=== PATIENT | male | born 1965 | race African-American/Black ===

== ENCOUNTER 2017-05-31 22:39 | Inpatient (IN) | payer OTHER ==
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
[2017-06-01 00:55] VITALS: BMI 30.4
[2017-06-01] MEDS ORDERED: MENTHOL/PHENOL 1 EACH UD MM PRN (01:01)
[2017-06-01] MEDS ORDERED: chlordiazePOXIDE HCL 25 MG CAPSULE PO ONE (01:01)
[2017-06-01] MEDS ORDERED: diphenhydrAMINE HCL 50 MG CAPSULE PO PRN (01:01)
[2017-06-01] MEDS ORDERED: chlordiazePOXIDE HCL 25 MG CAPSULE PO PRN (01:01)
[2017-06-01] MEDS ORDERED: MAG HYDROX/AL HYDROX/SIMETH 30 ML UNIT-DOSE CUP PO PRN (01:01)
[2017-06-01] MEDS ORDERED: LOPERAMIDE HCL 2 MG CAPSULE PO PRN (01:01)
[2017-06-01] MEDS ORDERED: MAGNESIUM HYDROX 2400MG/30ML ORAL SUSPENSION 30 ML CUP PO PRN (01:01)
[2017-06-01] MEDS ORDERED: MAGNESIUM CITRATE 300 ML BOTTLE PO PRN (01:01)
[2017-06-01] MEDS ORDERED: hydrOXYzine PAMOATE 50 MG CAPSULE (FP) PO PRN (01:01)
[2017-06-01] MEDS ORDERED: ACETAMINOPHEN 325 MG TABLET (FP) PO PRN (01:01)
[2017-06-01] MEDS ORDERED: IBUPROFEN 400 MG TABLET (FP) PO PRN (01:01)
[2017-06-01] MEDS ORDERED: P-EPHED 60MG/TRIPROLIDI 2.5MG TABLET PO PRN (01:01)
[2017-06-01] MEDS ORDERED: guaiFENesin/D-METHORPHAN HB 10 ML UNIT-DOSE CUPS PO PRN (01:01)
[2017-06-01] MEDS: chlordiazePOXIDE HCL 25 MG CAPSULE PO SCH ×4 (06:11→22:13)
[2017-06-01] MEDS ORDERED: metFORMIN HCL 500 MG TABLET (FP) PO SCH (07:00)
[2017-06-01] MEDS: PRENATAL VITAMINS W/ FOLIC ACID TABLET (FP) PO SCH (10:04)
[2017-06-01] MEDS: NAPROXEN 500 MG TABLET (FP) PO SCH ×2 (10:04→22:13)
[2017-06-01] MEDS: HYDROCHLOROTHIAZIDE 25 MG TABLET (FP) PO SCH (10:05)
[2017-06-01 10:07] LABS: MCH 28.6 pg (25.7-33.7); MCHC 32.5 g/dl (32.0-35.9); MEAN PLT VOLUME 7.8 fl (7.5-11.1); PLATELET COUNT 240 K/MM3 (134-434); RDW 14.9 % (11.9-15.9); WHITE BLOOD COUNT 8.4 K/mm3 (4.0-10.0)
[2017-06-01 10:37] LABS: ALBUMIN 3.1 g/dl (3.4-5.0); ALK PHOS 73 U/L (45-117); ANION GAP 8 (8-16); BILIRUBIN,TOTAL 0.4 mg/dL (0.2-1.0); CALCIUM 8.7 mg/dL (8.5-10.1); CO2 28 mmol/L (21-32); GLUCOSE,RANDOM 130 mg/dL (74-106); SGOT/AST 18 U/L (15-37); SGPT/ALT 29 U/L (12-78); TOT PROT 6.1 g/dl (6.4-8.2)
--- NOTE | 2017-06-01 11:27 | EKG ---
Test Reason : Blood Pressure : / mmHG Vent. Rate : 055 BPM Atrial Rate : 055 BPM P-R Int : 168 ms QRS Dur : 080 ms QT Int : 424 ms P-R-T Axes : 075 -14 -09 degrees QTc Int : 405 ms SINUS BRADYCARDIA BIATRIAL ENLARGEMENT SEPTAL INFARCT , AGE UNDETERMINED ABNORMAL ECG NO PREVIOUS ECGS AVAILABLE Confirmed by ROBERT BARTON MD ([id number]) on 06/01/2017 11:26:55 AM Referred By: Confirmed By:ROBERT BARTON MD
[2017-06-01 11:29] LABS: HIV 1 & 2 AB NEGATIVE; HIV 1 AGp24 NEGATIVE
[2017-06-01] MEDS ORDERED: PNEUMOCOCCAL 23 VACCINE 0.5 ML VIAL IM ONE (12:00)
[2017-06-01] MEDS ORDERED: PNEUMOC 13-VAL CONJ-DIP CRM/PF 0.5 ML DISP.SYRIN IM ONE (12:00)
--- NOTE | 2017-06-01 12:01 | PN ---
[facility] CIWA - CIWA Score Nausea/Vomitin-Mild Nausea/No Vomiting Muscle Tremors: 4-Moderate,w/Arms Extend Anxiety: 4-Mod. Anxious/Guarded Agitation: 2 Paroxysmal Sweats: 3 Orientation: 0-Oriented Tacttile Disturbances: 2-Mild Itch/Numbness/Burn Auditory Disturbances: 2-Mild Harshness/Frighten Visual Disturbances: 0-None Headache: 0-None Present CIWA-Ar Total Score: 18 BHS Progress Note (SOAP) Subjective: Fatigue, Tremors. Objective: PT. A & O X 3. NO ACUTE DISTRESS. 06/01/17 11:59 Vital Signs Temperature 97 F L 06/01/17 09:34 Pulse Rate 65 06/01/17 09:34 Respiratory Rate 18 06/01/17 09:34 Blood Pressure 126/74 06/01/17 09:34 O2 Sat by Pulse Oximetry (%) Laboratory Tests 06/01/17 06/01/17 06/01/17 06:10 07:30 07:30 WBC 8.4 D RBC 4.71 Hgb 13.5 Hct 41.5 MCV 88.0 MCH 28.6 MCHC 32.5 RDW 14.9 Plt Count 240 MPV 7.8 Sodium Potassium Chloride Carbon Dioxide Anion Gap BUN Creatinine Creat Clearance w eGFR POC Glucometer 123 Random Glucose Calcium Total Bilirubin AST ALT Alkaline Phosphatase Total Protein Albumin HIV 1&2 Antibody Screen Negative HIV P24 Antigen Negative 06/01/17 07:30 WBC RBC Hgb Hct MCV MCH MCHC RDW Plt Count MPV Sodium 138 Potassium 3.9 Chloride 102 Carbon Dioxide 28 Anion Gap 8 BUN 18 Creatinine 1.0 D Creat Clearance w eGFR > 60 POC Glucometer Random Glucose 130 H Calcium 8.7 Total Bilirubin 0.4 D AST 18 ALT 29 Alkaline Phosphatase 73 D Total Protein 6.1 L Albumin 3.1 L HIV 1&2 Antibody Screen HIV P24 Antigen LABS NOTED. RPR RESULT PENDING. UA NOT YET COLLECTED. 06/01/17 12:01 Assessment: 06/01/17 12:00 WITHDRAWAL SYMPTOMS. Plan: CONTINUE DETOX.
[2017-06-01] MEDS: metFORMIN HCL 500 MG TABLET (FP) PO SCH (17:30)
[2017-06-01] MEDS: THIAMINE HCL 100 MG TABLET (FP) PO SCH (22:13)
[2017-06-01] MEDS: ATORVASTATIN CA 40 MG TABLET (FP) PO SCH (22:13)
[2017-06-01 23:01] LABS: URINE APPEARANCE CLEAR; URINE BILIRUBIN NEGATIVE (NEGATIVE); URINE BLOOD NEGATIVE (NEGATIVE); URINE COLOR STRAW; URINE GLUCOSE (UA) NEGATIVE (NEGATIVE); URINE KETONE NEGATIVE (NEGATIVE); URINE LEUK ESTERASE NEGATIVE (NEGATIVE); URINE NITRITE NEGATIVE (NEGATIVE); URINE PROTEIN NEGATIVE (NEGATIVE); URINE UROBILINOGEN NEGATIVE mg/dL (0.2-1.0)
[2017-06-02] MEDS: chlordiazePOXIDE HCL 25 MG CAPSULE PO SCH ×2 (05:36→10:29)
[2017-06-02] MEDS: PRENATAL VITAMINS W/ FOLIC ACID TABLET (FP) PO SCH (10:29)
[2017-06-02] MEDS: HYDROCHLOROTHIAZIDE 25 MG TABLET (FP) PO SCH (10:29)
[2017-06-02] MEDS: NAPROXEN 500 MG TABLET (FP) PO SCH ×2 (10:29→22:06)
--- NOTE | 2017-06-02 12:41 | PN ---
[facility] CIWA - CIWA Score Nausea/Vomitin-Mild Nausea/No Vomiting Muscle Tremors: 4-Moderate,w/Arms Extend Anxiety: 3 Agitation: 3 Paroxysmal Sweats: 2 Orientation: 0-Oriented Tacttile Disturbances: 0-None Auditory Disturbances: 0-None Visual Disturbances: 0-None Headache: 4-Moderately Severe CIWA-Ar Total Score: 17 S Progress Note (SOAP) Subjective: Tremors, H/A, Sweating. Objective: PT. A & O X 3, OBSERVED AMBULATING ON UNIT. NO ACUTE DISTRESS. 06/02/17 12:36 Vital Signs Temperature 98.1 F 06/02/17 09:54 Pulse Rate 72 06/02/17 09:54 Respiratory Rate 18 06/02/17 09:54 Blood Pressure 143/90 06/02/17 09:54 O2 Sat by Pulse Oximetry (%) Laboratory Tests 06/01/17 06/01/17 06/01/17 06:10 07:30 07:30 WBC 8.4 D RBC 4.71 Hgb 13.5 Hct 41.5 MCV 88.0 MCH 28.6 MCHC 32.5 RDW 14.9 Plt Count 240 MPV 7.8 Sodium Potassium Chloride Carbon Dioxide Anion Gap BUN Creatinine Creat Clearance w eGFR POC Glucometer 123 Random Glucose Calcium Total Bilirubin AST ALT Alkaline Phosphatase Total Protein Albumin Urine Color Urine Appearance Urine pH Ur Specific [place] Urine Protein Urine Glucose (UA) Urine Ketones Urine Blood Urine Nitrite Urine Bilirubin Urine Urobilinogen Ur Leukocyte Esterase RPR Titer HIV 1&2 Antibody Screen Negative HIV P24 Antigen Negative 06/01/17 06/01/17 06/01/17 07:30 07:30 16:25 WBC RBC Hgb Hct MCV MCH MCHC RDW Plt Count MPV Sodium 138 Potassium 3.9 Chloride 102 Carbon Dioxide 28 Anion Gap 8 BUN 18 Creatinine 1.0 D Creat Clearance w eGFR > 60 POC Glucometer 219 Random Glucose 130 H Calcium 8.7 Total Bilirubin 0.4 D AST 18 ALT 29 Alkaline Phosphatase 73 D Total Protein 6.1 L Albumin 3.1 L Urine Color Urine Appearance Urine pH Ur Specific [place] Urine Protein Urine Glucose (UA) Urine Ketones Urine Blood Urine Nitrite Urine Bilirubin Urine Urobilinogen Ur Leukocyte Esterase RPR Titer Nonreactive HIV 1&2 Antibody Screen HIV P24 Antigen 06/01/17 06/02/17 22:50 05:10 WBC RBC Hgb Hct MCV MCH MCHC RDW Plt Count MPV Sodium Potassium Chloride Carbon Dioxide Anion Gap BUN Creatinine Creat Clearance w eGFR POC Glucometer 183 Random Glucose Calcium Total Bilirubin AST ALT Alkaline Phosphatase Total Protein Albumin Urine Color Straw Urine Appearance Clear Urine pH 6.0 Ur Specific [place] 1.020 Urine Protein Negative Urine Glucose (UA) Negative Urine Ketones Negative Urine Blood Negative Urine Nitrite Negative Urine Bilirubin Negative Urine Urobilinogen Negative Ur Leukocyte Esterase Negative RPR Titer HIV 1&2 Antibody Screen HIV P24 Antigen LABS NOTED. Assessment: 06/02/17 12:37 WITHDRAWAL SYMPTOMS. Plan: CONTINUE DETOX. PATIENT REPORTS THAT CURRENT DOSAGES OF LIBRIUM DETOX REGIMEN ARE CAUSING HIM TO FEEL SIGNIFICANTLY LETHARGIC. DOSING SCHEDULE OF LIBRIUM DETOX REGIMEN MODIFIED TO HELP REDUCE THIS OCCURRENCE.
[2017-06-02] MEDS ORDERED: chlordiazePOXIDE HCL 25 MG CAPSULE PO SCH (17:00)
[2017-06-02] MEDS: metFORMIN HCL 500 MG TABLET (FP) PO SCH (17:30)
[2017-06-02] MEDS ORDERED: chlordiazePOXIDE 5 MG CAPSULE PO SCH (22:00)
[2017-06-02] MEDS: chlordiazePOXIDE 5 MG CAPSULE PO SCH (22:06)
[2017-06-02] MEDS: THIAMINE HCL 100 MG TABLET (FP) PO SCH (22:06)
[2017-06-02] MEDS: ATORVASTATIN CA 40 MG TABLET (FP) PO SCH (22:06)
[2017-06-03] MEDS ORDERED: chlordiazePOXIDE 5 MG CAPSULE PO SCH (05:00)
[2017-06-03] MEDS: chlordiazePOXIDE 5 MG CAPSULE PO SCH ×2 (06:02→10:25)
[2017-06-03] MEDS: PRENATAL VITAMINS W/ FOLIC ACID TABLET (FP) PO SCH (10:25)
[2017-06-03] MEDS: NAPROXEN 500 MG TABLET (FP) PO SCH (10:25)
[2017-06-03] MEDS: HYDROCHLOROTHIAZIDE 25 MG TABLET (FP) PO SCH (10:25)
[2017-06-03] MEDS ORDERED: chlordiazePOXIDE HCL 10 MG CAPSULE PO SCH (17:00)
[2017-06-03 19:38] VITALS: BP 143/84; PULSE 83; TEMP 97.7
[2017-06-04] MEDS ORDERED: chlordiazePOXIDE HCL 10 MG CAPSULE PO SCH (05:00)
== END 2017-06-03 12:50 | disposition left against medical advice (07) | DRG 770 ==
LOC: YASAS 22:39 → Y3N 06-01 00:59
PROVIDERS: ADMIT Internal Medicine; ATTEND Internal Medicine
PROC: HZ2ZZZZ Detoxification Services for Substance Abuse Treatment (ICD-10-PCS; principal; 2017-06-01)
DX: F10.230 Alcohol dependence with withdrawal, uncomplicated (principal); F14.20 Cocaine dependence, uncomplicated; F12.20 Cannabis dependence, uncomplicated; F17.210 Nicotine dependence, cigarettes, uncomplicated; E11.9 Type 2 diabetes mellitus without complications; E78.00 Pure hypercholesterolemia, unspecified; E66.01 Morbid (severe) obesity due to excess calories; Z68.30 Body mass index [BMI] 30.0-30.9, adult; M54.5 Low back pain; Z87.828 Personal history of other (healed) physical injury and trauma; Z79.84 Long term (current) use of oral hypoglycemic drugs
CPT/HCPCS: 36415; 80053; 81003; 85027; 86593; 87389; 90732; 93005; 93010; G0009

== ENCOUNTER 2017-12-15 10:00 | Inpatient (IN) | payer OTHER ==
[2017-12-15 11:06] VITALS: BMI 35.6
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
[2017-12-15] MEDS ORDERED: MAG HYDROX/AL HYDROX/SIMETH 30 ML UNIT-DOSE CUP PO PRN (11:35)
[2017-12-15] MEDS ORDERED: P-EPHED 60MG/TRIPROLIDI 2.5MG TABLET PO PRN (11:35)
[2017-12-15] MEDS ORDERED: guaiFENesin/D-METHORPHAN HB 10 ML UNIT-DOSE CUPS PO PRN (11:35)
[2017-12-15] MEDS ORDERED: MAGNESIUM HYDROX 2400MG/30ML ORAL SUSPENSION 30 ML CUP PO PRN (11:35)
[2017-12-15] MEDS ORDERED: MAGNESIUM CITRATE 300 ML BOTTLE PO PRN (11:35)
[2017-12-15] MEDS ORDERED: NICOTINE POLACRILEX 2 MG GUM BC PRN (11:35)
[2017-12-15] MEDS ORDERED: MENTHOL/PHENOL 1 EACH UD MM PRN (11:35)
[2017-12-15] MEDS ORDERED: LOPERAMIDE HCL 2 MG CAPSULE PO PRN (11:35)
[2017-12-15] MEDS ORDERED: hydrOXYzine PAMOATE 25 MG CAPSULE (FP) PO PRN (11:35)
[2017-12-15] MEDS ORDERED: ACETAMINOPHEN 325 MG TABLET (FP) PO PRN (11:35)
[2017-12-15] MEDS ORDERED: IBUPROFEN 400 MG TABLET (FP) PO PRN (11:35)
[2017-12-15] MEDS ORDERED: chlordiazePOXIDE HCL 25 MG CAPSULE PO PRN (11:35)
[2017-12-15] MEDS ORDERED: chlordiazePOXIDE HCL 25 MG CAPSULE PO ONE (13:30)
[2017-12-15] MEDS: NICOTINE 14 MG/24 HOURS TOPICAL PATCH TD SCH (13:45)
[2017-12-15 16:53] LABS: URINE APPEARANCE TURBID; URINE BILIRUBIN NEGATIVE (NEGATIVE); URINE BLOOD NEGATIVE (NEGATIVE); URINE COLOR YELLOW; URINE GLUCOSE (UA) NEGATIVE (NEGATIVE); URINE KETONE TRACE (NEGATIVE); URINE LEUK ESTERASE NEGATIVE (NEGATIVE); URINE NITRITE NEGATIVE (NEGATIVE); URINE PROTEIN NEGATIVE (NEGATIVE); URINE UROBILINOGEN 4.0 E.U/dl mg/dL (0.2-1.0)
[2017-12-15] MEDS: chlordiazePOXIDE HCL 25 MG CAPSULE PO SCH ×2 (17:46→22:05)
[2017-12-15] MEDS ORDERED: THIAMINE HCL 100 MG TABLET (FP) PO SCH (22:00)
[2017-12-15] MEDS: NAPROXEN 500 MG TABLET (FP) PO SCH (22:05)
[2017-12-16] MEDS: chlordiazePOXIDE HCL 25 MG CAPSULE PO SCH ×3 (05:12→10:06)
[2017-12-16] MEDS ORDERED: metFORMIN HCL 500 MG TABLET (FP) PO SCH ×2 (07:00→10:00)
[2017-12-16] MEDS ORDERED: PRENATAL VITAMINS W/ FOLIC ACID TABLET (FP) PO SCH (10:00)
[2017-12-16] MEDS ORDERED: HYDROCHLOROTHIAZIDE 12.5 MG CAPSULE (FP) PO SCH (10:00)
[2017-12-16] MEDS ORDERED: ASPIRIN 81 MG CHEWABLE TABLETS PO SCH (10:00)
[2017-12-16] MEDS: NAPROXEN 500 MG TABLET (FP) PO SCH (10:06)
[2017-12-16] MEDS: NICOTINE 14 MG/24 HOURS TOPICAL PATCH TD SCH (10:47)
--- NOTE | 2017-12-16 12:21 | EKG ---
Test Reason : Blood Pressure : / mmHG Vent. Rate : 076 BPM Atrial Rate : 076 BPM P-R Int : 180 ms QRS Dur : 080 ms QT Int : 392 ms P-R-T Axes : 070 -27 034 degrees QTc Int : 441 ms NORMAL SINUS RHYTHM NONSPECIFIC T WAVE ABNORMALITY ABNORMAL ECG WHEN COMPARED WITH ECG OF 01-JUN-2017 01:02, CRITERIA FOR SEPTAL INFARCT ARE NO LONGER PRESENT NONSPECIFIC T WAVE ABNORMALITY NO LONGER EVIDENT IN INFERIOR LEADS Confirmed by ROBERT BARTON MD ([id number]) on 12/16/2017 12:20:50 PM Referred By: Confirmed By:ROBERT BARTON MD
[2017-12-16 12:35] LABS: HEMATOCRIT 40.2 % (35.4-49); MCH 28.4 pg (25.7-33.7); MCHC 32.4 g/dl (32.0-35.9); MEAN CELL VOLUME 87.8 fl (80-96); MEAN PLT VOLUME 7.7 fl (7.5-11.1); PLATELET COUNT 301 K/MM3 (134-434); RBC 4.57 M/mm3 (4.00-5.60)
[2017-12-16 12:49] LABS: CHLORIDE 106 mmol/L (98-107); SODIUM 139 mmol/L (136-145)
[2017-12-16 12:56] LABS: ALBUMIN 3.4 g/dl (3.4-5.0); ALK PHOS 64 U/L (45-117); ANION GAP 8 (8-16); BILIRUBIN,TOTAL 0.5 mg/dL (0.2-1.0); BLOOD UREA NITROGEN 21 mg/dL (7-18); CALCIUM 9.1 mg/dL (8.5-10.1); CO2 25 mmol/L (21-32); CREATININE 1.2 mg/dL (0.7-1.3); GLUCOSE,RANDOM 143 mg/dL (74-106); SGOT/AST 19 U/L (15-37); SGPT/ALT 30 U/L (12-78); TOT PROT 6.8 g/dl (6.4-8.2)
[2017-12-16 14:03] VITALS: BP 135/88; PULSE 73; TEMP 98.1
--- NOTE | 2017-12-16 14:22 | PN ---
[facility] CIWA - CIWA Score Nausea/Vomitin-No Nausea/No Vomiting Muscle Tremors: 3 Anxiety: 4-Mod. Anxious/Guarded Agitation: 2 Paroxysmal Sweats: 3 Orientation: 0-Oriented Tacttile Disturbances: 2-Mild Itch/Numbness/Burn Auditory Disturbances: 2-Mild Harshness/Frighten Visual Disturbances: 0-None Headache: 0-None Present CIWA-Ar Total Score: 16 S Progress Note (SOAP) Subjective: Fatigue, Interrupted Sleep, Sweating, Tremors. Objective: PT. A & O X 3, OBSERVED AMBULATING ON UNIT. NO ACUTE DISTRESS. 12/16/17 14:20 Vital Signs Temperature 98.1 F 12/16/17 14:02 Pulse Rate 73 12/16/17 14:02 Respiratory Rate 20 12/16/17 14:02 Blood Pressure 135/88 12/16/17 14:02 O2 Sat by Pulse Oximetry (%) Laboratory Tests 12/15/17 12/15/17 12/15/17 11:19 12:15 15:00 WBC RBC Hgb Hct MCV MCH MCHC RDW Plt Count MPV Sodium Potassium Chloride Carbon Dioxide Anion Gap BUN Creatinine Creat Clearance w eGFR POC Glucometer 163 Random Glucose Calcium Total Bilirubin AST ALT Alkaline Phosphatase Total Protein Albumin Urine Color Yellow Urine Appearance Turbid Urine pH 5.0 Ur Specific [place] 1.030 Urine Protein Negative Urine Glucose (UA) Negative Urine Ketones Trace H Urine Blood Negative Urine Nitrite Negative Urine Bilirubin Negative Urine Urobilinogen 4.0 e.u/dl Ur Leukocyte Esterase Negative RPR Titer HIV 1&2 Antibody Screen Negative HIV P24 Antigen Negative 12/16/17 12/16/17 12/16/17 06:00 06:00 06:00 WBC 9.0 RBC 4.57 Hgb 13.0 Hct 40.2 MCV 87.8 MCH 28.4 MCHC 32.4 RDW 15.0 Plt Count 301 D MPV 7.7 Sodium 139 Potassium 4.0 Chloride 106 Carbon Dioxide 25 Anion Gap 8 BUN 21 H Creatinine 1.2 Creat Clearance w eGFR > 60 POC Glucometer Random Glucose 143 H Calcium 9.1 Total Bilirubin 0.5 D AST 19 ALT 30 Alkaline Phosphatase 64 Total Protein 6.8 Albumin 3.4 Urine Color Urine Appearance Urine pH Ur Specific [place] Urine Protein Urine Glucose (UA) Urine Ketones Urine Blood Urine Nitrite Urine Bilirubin Urine Urobilinogen Ur Leukocyte Esterase RPR Titer Nonreactive HIV 1&2 Antibody Screen HIV P24 Antigen LABS NOTED. Assessment: 12/16/17 14:21 WITHDRAWAL SYMPTOMS. Plan: CONTINUE DETOX. INCREASE DAILY PO FLUID INTAKE.
[2017-12-16] MEDS ORDERED: chlordiazePOXIDE HCL 25 MG CAPSULE PO SCH (17:00)
--- NOTE | 2017-12-16 17:50 | PN ---
BHS Progress Note Note: did not want to complete treatment ,seen by counselor,did not want to wait, sigened release ama
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
[2017-12-17] MEDS ORDERED: chlordiazePOXIDE 5 MG CAPSULE PO SCH (17:00)
[2017-12-18] MEDS ORDERED: chlordiazePOXIDE HCL 10 MG CAPSULE PO SCH (17:00)
== END 2017-12-16 05:54 | disposition left against medical advice (07) | DRG 770 ==
LOC: YASAS 10:00 → Y3N 12:39
PROVIDERS: ADMIT Internal Medicine; ATTEND Internal Medicine
PROC: HZ2ZZZZ Detoxification Services for Substance Abuse Treatment (ICD-10-PCS; principal; 2017-12-15)
DX: F10.230 Alcohol dependence with withdrawal, uncomplicated (principal); F14.20 Cocaine dependence, uncomplicated; F12.20 Cannabis dependence, uncomplicated; F17.210 Nicotine dependence, cigarettes, uncomplicated; I10 Essential (primary) hypertension; E78.00 Pure hypercholesterolemia, unspecified; E11.9 Type 2 diabetes mellitus without complications; M54.5 Low back pain; E66.01 Morbid (severe) obesity due to excess calories; Z68.35 Body mass index [BMI] 35.0-35.9, adult; Z91.14 Patient's other noncompliance with medication regimen; Z79.84 Long term (current) use of oral hypoglycemic drugs
CPT/HCPCS: 36415; 80053; 81003; 82962; 85027; 86593; 87389; 93005; 93010

== ENCOUNTER 2018-01-24 14:07 | Inpatient (IN) | payer OTHER ==
[2018-01-24 16:51] VITALS: BMI 36.5
--- NOTE | 2018-01-24 18:35 | HP ---
[facility] Rehab Assess/Revision - Admission History Admitted to Rehab from: [facility] Date of Admission to Rehab: 01/24/2018 - Vital signs Vital Signs: Vital Signs Period Temp Pulse Resp BP Sys/Victoria Pulse Ox Last 24 Hr 98.9 F 97 18 170/100 - Findings Detox History & Physical reviewed: Yes Concur with findings: Yes Comments/Additional Findings: patient was d/c from [facility] and detoxed now in need of rehab, no withdrawal sx noted, hypertensive on medication which he has beent akign Inpatient Rehab Admission - Initial Determination Are CD services needed?: Yes Free of communicable disease: Yes Not in need of hospitalization: Yes - Rehab Admission Criteria Lacks judgement: Yes Patient is meeting Inpatient Rehab admission criteria:: Yes (patient did not complete detox last admissions )
[2018-01-24] MEDS ORDERED: LOPERAMIDE HCL 2 MG CAPSULE PO PRN (18:36)
[2018-01-24] MEDS ORDERED: hydrOXYzine PAMOATE 50 MG CAPSULE (FP) PO PRN (18:36)
[2018-01-24] MEDS ORDERED: MAGNESIUM CITRATE 300 ML BOTTLE PO PRN (18:36)
[2018-01-24] MEDS ORDERED: MENTHOL/PHENOL 1 EACH UD MM PRN (18:36)
[2018-01-24] MEDS ORDERED: P-EPHED 60MG/TRIPROLIDI 2.5MG TABLET PO PRN (18:36)
[2018-01-24] MEDS ORDERED: guaiFENesin/D-METHORPHAN HB 10 ML UNIT-DOSE CUPS PO PRN (18:36)
[2018-01-24] MEDS ORDERED: ACETAMINOPHEN 325 MG TABLET (FP) PO PRN (18:36)
[2018-01-24] MEDS ORDERED: MAG HYDROX/AL HYDROX/SIMETH 30 ML UNIT-DOSE CUP PO PRN (18:36)
[2018-01-24] MEDS: HYDROCHLOROTHIAZIDE 12.5 MG CAPSULE (FP) PO SCH (19:45)
[2018-01-24] MEDS ORDERED: NAPROXEN 500 MG TABLET (FP) PO PRN (20:06)
[2018-01-24] MEDS ORDERED: TUBERCULIN PPD 5 TU/0.1ML VIAL ID ONE (20:50)
[2018-01-24] MEDS: GABAPENTIN 300 MG CAPSULE (FP) PO SCH (21:43)
[2018-01-24] MEDS: NAPROXEN 500 MG TABLET (FP) PO SCH (21:43)
[2018-01-24] MEDS: ATORVASTATIN CA 20 MG TABLET (FP) PO SCH (21:43)
[2018-01-24] MEDS: THIAMINE HCL 100 MG TABLET (FP) PO SCH (21:44)
[2018-01-24] MEDS ORDERED: MELATONIN 5 MG TABLETS PO PRN (22:00)
[2018-01-24] MEDS ORDERED: PATIENT'S OWN MEDICATION (NON-FORMULARY) (Simvastatin [Simvastatin] 20 MG) PO SCH (22:00)
[2018-01-25] MEDS: metFORMIN HCL 500 MG TABLET (FP) PO SCH ×2 (06:20→17:12)
[2018-01-25] MEDS: ASPIRIN 81 MG CHEWABLE TABLETS PO SCH (09:57)
[2018-01-25] MEDS: GABAPENTIN 300 MG CAPSULE (FP) PO SCH ×2 (09:58→22:10)
[2018-01-25] MEDS: LORATADINE 10 MG TABLET PO SCH (09:58)
[2018-01-25] MEDS: PANTOPRAZOLE 40 MG TABLET (FP) PO SCH (09:58)
[2018-01-25] MEDS: ENALAPRIL MALEATE 10 MG TABLET (FP) PO SCH (09:58)
[2018-01-25] MEDS: NICOTINE 14 MG/24 HOURS TOPICAL PATCH TD SCH (09:58)
[2018-01-25] MEDS: NAPROXEN 500 MG TABLET (FP) PO SCH ×2 (09:58→22:10)
[2018-01-25] MEDS: HYDROCHLOROTHIAZIDE 12.5 MG CAPSULE (FP) PO SCH (09:58)
[2018-01-25] MEDS: PRENATAL VITAMINS W/ FOLIC ACID TABLET (FP) PO SCH (09:58)
[2018-01-25] MEDS: MINERAL OIL/PETROLAT/WATER TOPICAL CREAM 113 GM JAR TP SCH (10:02)
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
--- NOTE | 2018-01-25 11:44 | EKG ---
Test Reason : Blood Pressure : / mmHG Vent. Rate : 066 BPM Atrial Rate : 066 BPM P-R Int : 194 ms QRS Dur : 086 ms QT Int : 400 ms P-R-T Axes : 071 -10 -10 degrees QTc Int : 419 ms NORMAL SINUS RHYTHM SEPTAL INFARCT , AGE UNDETERMINED ABNORMAL ECG WHEN COMPARED WITH ECG OF 15-DEC-2017 14:25, SEPTAL INFARCT IS NOW PRESENT NONSPECIFIC T WAVE ABNORMALITY NOW EVIDENT IN INFERIOR LEADS Confirmed by ROBERT BARTON MD ([id number]) on 01/25/2018 11:44:26 AM Referred By: Confirmed By:ROBERT BARTON MD
[2018-01-25] MEDS: THIAMINE HCL 100 MG TABLET (FP) PO SCH (22:10)
[2018-01-25] MEDS: ATORVASTATIN CA 20 MG TABLET (FP) PO SCH (22:10)
[2018-01-26] MEDS: metFORMIN HCL 500 MG TABLET (FP) PO SCH ×2 (06:26→17:04)
[2018-01-26] MEDS: GABAPENTIN 300 MG CAPSULE (FP) PO SCH ×2 (10:39→21:38)
[2018-01-26] MEDS: NAPROXEN 500 MG TABLET (FP) PO SCH ×2 (10:39→21:38)
[2018-01-26] MEDS: ASPIRIN 81 MG CHEWABLE TABLETS PO SCH (10:39)
[2018-01-26] MEDS: NICOTINE POLACRILEX 2 MG GUM BUC PRN ×2 (10:39→21:39)
[2018-01-26] MEDS: PANTOPRAZOLE 40 MG TABLET (FP) PO SCH (10:39)
[2018-01-26] MEDS: LORATADINE 10 MG TABLET PO SCH (10:39)
[2018-01-26] MEDS: ENALAPRIL MALEATE 10 MG TABLET (FP) PO SCH (10:39)
[2018-01-26] MEDS: PRENATAL VITAMINS W/ FOLIC ACID TABLET (FP) PO SCH (10:39)
[2018-01-26] MEDS: HYDROCHLOROTHIAZIDE 12.5 MG CAPSULE (FP) PO SCH (10:39)
[2018-01-26] MEDS: NICOTINE 14 MG/24 HOURS TOPICAL PATCH TD SCH (10:39)
[2018-01-26] MEDS: MAGNESIUM HYDROX 2400MG/30ML ORAL SUSPENSION 30 ML CUP PO PRN (10:42)
[2018-01-26] MEDS: MINERAL OIL/PETROLAT/WATER TOPICAL CREAM 113 GM JAR TP SCH (11:00)
[2018-01-26] MEDS: THIAMINE HCL 100 MG TABLET (FP) PO SCH (21:38)
[2018-01-26] MEDS: ATORVASTATIN CA 20 MG TABLET (FP) PO SCH (21:38)
[2018-01-27] MEDS: NICOTINE POLACRILEX 2 MG GUM BUC PRN ×3 (06:38→22:10)
[2018-01-27] MEDS: metFORMIN HCL 500 MG TABLET (FP) PO SCH ×2 (06:38→17:30)
[2018-01-27] MEDS: MAGNESIUM HYDROX 2400MG/30ML ORAL SUSPENSION 30 ML CUP PO PRN (06:40)
[2018-01-27] MEDS: MINERAL OIL/PETROLAT/WATER TOPICAL CREAM 113 GM JAR TP SCH (10:15)
[2018-01-27] MEDS: HYDROCHLOROTHIAZIDE 12.5 MG CAPSULE (FP) PO SCH (10:53)
[2018-01-27] MEDS: PRENATAL VITAMINS W/ FOLIC ACID TABLET (FP) PO SCH (10:53)
[2018-01-27] MEDS: LORATADINE 10 MG TABLET PO SCH (10:53)
[2018-01-27] MEDS: ENALAPRIL MALEATE 10 MG TABLET (FP) PO SCH (10:53)
[2018-01-27] MEDS: PANTOPRAZOLE 40 MG TABLET (FP) PO SCH (10:53)
[2018-01-27] MEDS: GABAPENTIN 300 MG CAPSULE (FP) PO SCH ×2 (10:53→22:10)
[2018-01-27] MEDS: ASPIRIN 81 MG CHEWABLE TABLETS PO SCH (10:53)
[2018-01-27] MEDS: NICOTINE 14 MG/24 HOURS TOPICAL PATCH TD SCH (10:55)
[2018-01-27] MEDS: NAPROXEN 500 MG TABLET (FP) PO SCH ×2 (10:57→22:10)
[2018-01-27] MEDS: ATORVASTATIN CA 20 MG TABLET (FP) PO SCH (22:10)
[2018-01-27] MEDS: THIAMINE HCL 100 MG TABLET (FP) PO SCH (22:10)
[2018-01-28] MEDS: metFORMIN HCL 500 MG TABLET (FP) PO SCH ×2 (06:50→17:10)
[2018-01-28] MEDS: NICOTINE POLACRILEX 2 MG GUM BUC PRN ×2 (06:51→11:00)
[2018-01-28] MEDS: LORATADINE 10 MG TABLET PO SCH (11:00)
[2018-01-28] MEDS: NAPROXEN 500 MG TABLET (FP) PO SCH ×2 (11:00→21:34)
[2018-01-28] MEDS: ASPIRIN 81 MG CHEWABLE TABLETS PO SCH (11:00)
[2018-01-28] MEDS: PRENATAL VITAMINS W/ FOLIC ACID TABLET (FP) PO SCH (11:00)
[2018-01-28] MEDS: HYDROCHLOROTHIAZIDE 12.5 MG CAPSULE (FP) PO SCH (11:00)
[2018-01-28] MEDS: ENALAPRIL MALEATE 10 MG TABLET (FP) PO SCH (11:00)
[2018-01-28] MEDS: MINERAL OIL/PETROLAT/WATER TOPICAL CREAM 113 GM JAR TP SCH (11:00)
[2018-01-28] MEDS: PANTOPRAZOLE 40 MG TABLET (FP) PO SCH (11:00)
[2018-01-28] MEDS: GABAPENTIN 300 MG CAPSULE (FP) PO SCH ×2 (11:00→21:34)
[2018-01-28] MEDS: NICOTINE 14 MG/24 HOURS TOPICAL PATCH TD SCH (11:08)
[2018-01-28] MEDS: ATORVASTATIN CA 20 MG TABLET (FP) PO SCH (21:34)
[2018-01-28] MEDS: THIAMINE HCL 100 MG TABLET (FP) PO SCH (21:34)
[2018-01-29] MEDS: metFORMIN HCL 500 MG TABLET (FP) PO SCH ×2 (06:59→16:49)
[2018-01-29] MEDS: NICOTINE POLACRILEX 2 MG GUM BUC PRN ×2 (07:00→10:02)
[2018-01-29] MEDS: HYDROCHLOROTHIAZIDE 12.5 MG CAPSULE (FP) PO SCH (09:59)
[2018-01-29] MEDS: ENALAPRIL MALEATE 10 MG TABLET (FP) PO SCH (09:59)
[2018-01-29] MEDS: PRENATAL VITAMINS W/ FOLIC ACID TABLET (FP) PO SCH (10:00)
[2018-01-29] MEDS: NAPROXEN 500 MG TABLET (FP) PO SCH ×2 (10:00→22:06)
[2018-01-29] MEDS: MINERAL OIL/PETROLAT/WATER TOPICAL CREAM 113 GM JAR TP SCH (10:00)
[2018-01-29] MEDS: NICOTINE 14 MG/24 HOURS TOPICAL PATCH TD SCH (10:00)
[2018-01-29] MEDS: LORATADINE 10 MG TABLET PO SCH (10:00)
[2018-01-29] MEDS: GABAPENTIN 300 MG CAPSULE (FP) PO SCH ×2 (10:00→22:06)
[2018-01-29] MEDS: ASPIRIN 81 MG CHEWABLE TABLETS PO SCH (10:00)
[2018-01-29] MEDS: PANTOPRAZOLE 40 MG TABLET (FP) PO SCH (10:00)
[2018-01-29] MEDS ORDERED: MAGNESIUM CITRATE 300 ML BOTTLE PO PRN (11:26)
--- NOTE | 2018-01-29 11:30 | PN ---
[facility] Progress Note Note: Patient reports cigarette craving and would like increase in gum dose. Also state he is constipated and has hard stools. MOM ineffective. Last BM this morning. Vital Signs Temperature 98.5 F 01/29/18 06:25 Pulse Rate 81 01/29/18 06:25 Respiratory Rate 20 01/29/18 06:25 Blood Pressure 135/87 01/29/18 06:25 O2 Sat by Pulse Oximetry (%) Laboratory Tests 01/25/18 01/25/18 01/26/18 06:20 17:12 06:25 POC Glucometer 161 177 116 01/26/18 01/27/18 01/27/18 17:03 06:37 16:48 POC Glucometer 192 129 204 01/28/18 01/28/18 01/29/18 06:50 17:10 06:57 POC Glucometer 149 232 167 A/P: Nicotine dependence Constipation Will increase nicotine gum to 4mg prn increase oral fluids magnesium citrate reordered prn continue to monitor clinically
[2018-01-29] MEDS: NICOTINE POLACRILEX 4 MG GUM BUC PRN ×2 (18:15→22:05)
--- NOTE | 2018-01-29 18:38 | PN ---
S Progress Note Note: Reported last BGM by OSMIN Holman of 306. Vital Signs Temperature 98.5 F 01/29/18 06:25 Pulse Rate 102 H 01/29/18 10:00 Respiratory Rate 20 01/29/18 06:25 Blood Pressure 138/91 01/29/18 10:00 O2 Sat by Pulse Oximetry (%) One time dose of Novolog 8 units order increase fluids continue to monitor
[2018-01-29] MEDS ORDERED: INSULIN (NOVOLOG) ASPART 100 UNITS/ML 10ML VIAL SQ ONE (19:00)
[2018-01-29] MEDS: THIAMINE HCL 100 MG TABLET (FP) PO SCH (22:06)
[2018-01-29] MEDS: ATORVASTATIN CA 20 MG TABLET (FP) PO SCH (22:06)
[2018-01-30] MEDS: INSULIN SLIDING SCALE (NOVOLOG) 1 VIAL SQ SCH ×2 (07:21→16:49)
[2018-01-30] MEDS: metFORMIN HCL 500 MG TABLET (FP) PO SCH ×2 (07:21→16:48)
[2018-01-30] MEDS: PRENATAL VITAMINS W/ FOLIC ACID TABLET (FP) PO SCH (10:42)
[2018-01-30] MEDS: ASPIRIN 81 MG CHEWABLE TABLETS PO SCH (10:42)
[2018-01-30] MEDS: LORATADINE 10 MG TABLET PO SCH (10:43)
[2018-01-30] MEDS: MINERAL OIL/PETROLAT/WATER TOPICAL CREAM 113 GM JAR TP SCH (10:43)
[2018-01-30] MEDS: PANTOPRAZOLE 40 MG TABLET (FP) PO SCH (10:43)
[2018-01-30] MEDS: ENALAPRIL MALEATE 10 MG TABLET (FP) PO SCH (10:43)
[2018-01-30] MEDS: NAPROXEN 500 MG TABLET (FP) PO SCH ×2 (10:43→21:44)
[2018-01-30] MEDS: HYDROCHLOROTHIAZIDE 12.5 MG CAPSULE (FP) PO SCH (10:43)
[2018-01-30] MEDS: GABAPENTIN 300 MG CAPSULE (FP) PO SCH ×2 (10:43→21:44)
[2018-01-30] MEDS: NICOTINE 14 MG/24 HOURS TOPICAL PATCH TD SCH (10:44)
[2018-01-30] MEDS ORDERED: INSULIN (NOVOLOG) ASPART 100 UNITS/ML 10ML VIAL ONE (17:08)
[2018-01-30] MEDS: ATORVASTATIN CA 20 MG TABLET (FP) PO SCH (21:44)
[2018-01-30] MEDS: THIAMINE HCL 100 MG TABLET (FP) PO SCH (21:44)
[2018-01-30] MEDS: NICOTINE POLACRILEX 4 MG GUM BUC PRN (21:45)
[2018-01-31] MEDS: metFORMIN HCL 500 MG TABLET (FP) PO SCH ×2 (06:25→16:44)
[2018-01-31] MEDS: INSULIN SLIDING SCALE (NOVOLOG) 1 VIAL SQ SCH ×2 (06:25→16:48)
[2018-01-31] MEDS: NICOTINE POLACRILEX 4 MG GUM BUC PRN ×3 (06:26→21:52)
[2018-01-31] MEDS ORDERED: INSULIN (NOVOLOG) ASPART 100 UNITS/ML 10ML VIAL ONE ×2 (07:20→16:47)
[2018-01-31] MEDS: HYDROCHLOROTHIAZIDE 12.5 MG CAPSULE (FP) PO SCH (10:57)
[2018-01-31] MEDS: PRENATAL VITAMINS W/ FOLIC ACID TABLET (FP) PO SCH (10:57)
[2018-01-31] MEDS: PANTOPRAZOLE 40 MG TABLET (FP) PO SCH (10:57)
[2018-01-31] MEDS: NAPROXEN 500 MG TABLET (FP) PO SCH ×2 (10:57→21:51)
[2018-01-31] MEDS: ENALAPRIL MALEATE 10 MG TABLET (FP) PO SCH (10:57)
[2018-01-31] MEDS: LORATADINE 10 MG TABLET PO SCH (10:57)
[2018-01-31] MEDS: ASPIRIN 81 MG CHEWABLE TABLETS PO SCH (10:57)
[2018-01-31] MEDS: MINERAL OIL/PETROLAT/WATER TOPICAL CREAM 113 GM JAR TP SCH (10:57)
[2018-01-31] MEDS: GABAPENTIN 300 MG CAPSULE (FP) PO SCH ×2 (10:57→21:51)
[2018-01-31] MEDS: NICOTINE 14 MG/24 HOURS TOPICAL PATCH TD SCH (10:58)
[2018-01-31] MEDS: COLLOIDAL OATMEAL 1 BAR EACH TP PRN (16:50)
[2018-01-31] MEDS: THIAMINE HCL 100 MG TABLET (FP) PO SCH (21:51)
[2018-01-31] MEDS: ATORVASTATIN CA 20 MG TABLET (FP) PO SCH (21:51)
[2018-02-01] MEDS: metFORMIN HCL 500 MG TABLET (FP) PO SCH ×2 (07:10→16:49)
[2018-02-01] MEDS: INSULIN SLIDING SCALE (NOVOLOG) 1 VIAL SQ SCH ×2 (07:10→16:49)
[2018-02-01] MEDS: NICOTINE POLACRILEX 4 MG GUM BUC PRN ×5 (07:11→22:14)
[2018-02-01] MEDS ORDERED: INSULIN (NOVOLOG) ASPART 100 UNITS/ML 10ML VIAL ONE ×2 (07:19→16:46)
[2018-02-01] MEDS: LORATADINE 10 MG TABLET PO SCH (10:45)
[2018-02-01] MEDS: ASPIRIN 81 MG CHEWABLE TABLETS PO SCH (10:45)
[2018-02-01] MEDS: PANTOPRAZOLE 40 MG TABLET (FP) PO SCH (10:46)
[2018-02-01] MEDS: NICOTINE 14 MG/24 HOURS TOPICAL PATCH TD SCH (10:46)
[2018-02-01] MEDS: GABAPENTIN 300 MG CAPSULE (FP) PO SCH ×2 (10:46→22:14)
[2018-02-01] MEDS: PRENATAL VITAMINS W/ FOLIC ACID TABLET (FP) PO SCH (10:46)
[2018-02-01] MEDS: NAPROXEN 500 MG TABLET (FP) PO SCH ×2 (10:46→22:14)
[2018-02-01] MEDS: HYDROCHLOROTHIAZIDE 12.5 MG CAPSULE (FP) PO SCH (10:46)
[2018-02-01] MEDS: MINERAL OIL/PETROLAT/WATER TOPICAL CREAM 113 GM JAR TP SCH (10:47)
[2018-02-01] MEDS: ENALAPRIL MALEATE 10 MG TABLET (FP) PO SCH (10:47)
[2018-02-01] MEDS: THIAMINE HCL 100 MG TABLET (FP) PO SCH (22:14)
[2018-02-01] MEDS: ATORVASTATIN CA 20 MG TABLET (FP) PO SCH (22:14)
[2018-02-01] MEDS: COLLOIDAL OATMEAL 1 BAR EACH TP PRN (22:17)
[2018-02-02] MEDS: INSULIN SLIDING SCALE (NOVOLOG) 1 VIAL SQ SCH ×2 (06:37→16:57)
[2018-02-02] MEDS: metFORMIN HCL 500 MG TABLET (FP) PO SCH ×2 (06:37→16:57)
[2018-02-02] MEDS: NICOTINE POLACRILEX 4 MG GUM BUC PRN ×2 (06:38→21:47)
[2018-02-02] MEDS ORDERED: INSULIN (NOVOLOG) ASPART 100 UNITS/ML 10ML VIAL ONE ×2 (06:44→17:02)
[2018-02-02] MEDS: PRENATAL VITAMINS W/ FOLIC ACID TABLET (FP) PO SCH (10:17)
[2018-02-02] MEDS: NAPROXEN 500 MG TABLET (FP) PO SCH ×2 (10:17→21:47)
[2018-02-02] MEDS: PANTOPRAZOLE 40 MG TABLET (FP) PO SCH (10:17)
[2018-02-02] MEDS: ASPIRIN 81 MG CHEWABLE TABLETS PO SCH (10:17)
[2018-02-02] MEDS: HYDROCHLOROTHIAZIDE 12.5 MG CAPSULE (FP) PO SCH (10:17)
[2018-02-02] MEDS: GABAPENTIN 300 MG CAPSULE (FP) PO SCH ×2 (10:17→21:47)
[2018-02-02] MEDS: ENALAPRIL MALEATE 10 MG TABLET (FP) PO SCH (10:18)
[2018-02-02] MEDS: LORATADINE 10 MG TABLET PO SCH (10:18)
[2018-02-02] MEDS: NICOTINE 14 MG/24 HOURS TOPICAL PATCH TD SCH (10:18)
[2018-02-02] MEDS: MINERAL OIL/PETROLAT/WATER TOPICAL CREAM 113 GM JAR TP SCH (10:21)
[2018-02-02] MEDS: ATORVASTATIN CA 20 MG TABLET (FP) PO SCH (21:47)
[2018-02-02] MEDS: THIAMINE HCL 100 MG TABLET (FP) PO SCH (21:47)
[2018-02-03] MEDS: INSULIN SLIDING SCALE (NOVOLOG) 1 VIAL SQ SCH ×2 (06:43→16:58)
[2018-02-03] MEDS: metFORMIN HCL 500 MG TABLET (FP) PO SCH ×2 (06:43→16:57)
[2018-02-03] MEDS: COLLOIDAL OATMEAL 1 BAR EACH TP PRN (06:54)
[2018-02-03] MEDS ORDERED: INSULIN (NOVOLOG) ASPART 100 UNITS/ML 10ML VIAL ONE ×2 (07:13→16:59)
[2018-02-03] MEDS: NAPROXEN 500 MG TABLET (FP) PO SCH ×2 (10:44→22:00)
[2018-02-03] MEDS: LORATADINE 10 MG TABLET PO SCH (10:44)
[2018-02-03] MEDS: ENALAPRIL MALEATE 10 MG TABLET (FP) PO SCH (10:44)
[2018-02-03] MEDS: HYDROCHLOROTHIAZIDE 12.5 MG CAPSULE (FP) PO SCH (10:44)
[2018-02-03] MEDS: PRENATAL VITAMINS W/ FOLIC ACID TABLET (FP) PO SCH (10:44)
[2018-02-03] MEDS: ASPIRIN 81 MG CHEWABLE TABLETS PO SCH (10:44)
[2018-02-03] MEDS: PANTOPRAZOLE 40 MG TABLET (FP) PO SCH (10:44)
[2018-02-03] MEDS: NICOTINE 14 MG/24 HOURS TOPICAL PATCH TD SCH (10:45)
[2018-02-03] MEDS: MINERAL OIL/PETROLAT/WATER TOPICAL CREAM 113 GM JAR TP SCH (10:45)
[2018-02-03] MEDS: GABAPENTIN 300 MG CAPSULE (FP) PO SCH ×2 (10:45→22:00)
[2018-02-03] MEDS: NICOTINE POLACRILEX 4 MG GUM BUC PRN ×2 (11:18→22:02)
[2018-02-03] MEDS: ATORVASTATIN CA 20 MG TABLET (FP) PO SCH (22:00)
[2018-02-03] MEDS: THIAMINE HCL 100 MG TABLET (FP) PO SCH (22:00)
[2018-02-04] MEDS: metFORMIN HCL 500 MG TABLET (FP) PO SCH ×2 (06:45→16:44)
[2018-02-04] MEDS ORDERED: INSULIN (NOVOLOG) ASPART 100 UNITS/ML 10ML VIAL ONE ×2 (06:47→16:43)
[2018-02-04] MEDS: INSULIN SLIDING SCALE (NOVOLOG) 1 VIAL SQ SCH ×2 (07:02→16:44)
[2018-02-04] MEDS: LORATADINE 10 MG TABLET PO SCH (10:26)
[2018-02-04] MEDS: PRENATAL VITAMINS W/ FOLIC ACID TABLET (FP) PO SCH (10:26)
[2018-02-04] MEDS: ASPIRIN 81 MG CHEWABLE TABLETS PO SCH (10:26)
[2018-02-04] MEDS: HYDROCHLOROTHIAZIDE 12.5 MG CAPSULE (FP) PO SCH (10:26)
[2018-02-04] MEDS: ENALAPRIL MALEATE 10 MG TABLET (FP) PO SCH (10:26)
[2018-02-04] MEDS: NICOTINE 14 MG/24 HOURS TOPICAL PATCH TD SCH (10:26)
[2018-02-04] MEDS: MINERAL OIL/PETROLAT/WATER TOPICAL CREAM 113 GM JAR TP SCH (10:26)
[2018-02-04] MEDS: PANTOPRAZOLE 40 MG TABLET (FP) PO SCH (10:26)
[2018-02-04] MEDS: GABAPENTIN 300 MG CAPSULE (FP) PO SCH ×2 (10:26→21:45)
[2018-02-04] MEDS: NAPROXEN 500 MG TABLET (FP) PO SCH ×2 (10:26→21:45)
[2018-02-04] MEDS: NICOTINE POLACRILEX 4 MG GUM BUC PRN ×3 (10:28→19:07)
[2018-02-04] MEDS: ATORVASTATIN CA 20 MG TABLET (FP) PO SCH (21:45)
[2018-02-04] MEDS: THIAMINE HCL 100 MG TABLET (FP) PO SCH (21:45)
[2018-02-05] MEDS ORDERED: INSULIN (NOVOLOG) ASPART 100 UNITS/ML 10ML VIAL ONE ×2 (06:32→17:02)
[2018-02-05] MEDS: metFORMIN HCL 500 MG TABLET (FP) PO SCH ×2 (06:35→16:54)
[2018-02-05] MEDS: INSULIN SLIDING SCALE (NOVOLOG) 1 VIAL SQ SCH ×2 (06:36→16:54)
[2018-02-05] MEDS: ASPIRIN 81 MG CHEWABLE TABLETS PO SCH (11:06)
[2018-02-05] MEDS: LORATADINE 10 MG TABLET PO SCH (11:06)
[2018-02-05] MEDS: PRENATAL VITAMINS W/ FOLIC ACID TABLET (FP) PO SCH (11:06)
[2018-02-05] MEDS: GABAPENTIN 300 MG CAPSULE (FP) PO SCH ×2 (11:06→21:40)
[2018-02-05] MEDS: HYDROCHLOROTHIAZIDE 12.5 MG CAPSULE (FP) PO SCH (11:06)
[2018-02-05] MEDS: PANTOPRAZOLE 40 MG TABLET (FP) PO SCH (11:06)
[2018-02-05] MEDS: ENALAPRIL MALEATE 10 MG TABLET (FP) PO SCH (11:06)
[2018-02-05] MEDS: NICOTINE 14 MG/24 HOURS TOPICAL PATCH TD SCH (11:07)
[2018-02-05] MEDS: MINERAL OIL/PETROLAT/WATER TOPICAL CREAM 113 GM JAR TP SCH (11:07)
[2018-02-05] MEDS: NAPROXEN 500 MG TABLET (FP) PO SCH ×2 (11:07→21:40)
--- NOTE | 2018-02-05 14:05 | PN ---
[facility] Progress Note Note: Patient presents with dry skin and itching. Eucerin not helpful. Vital Signs Temperature 97.0 F L 02/05/18 07:13 Pulse Rate 86 02/05/18 07:13 Respiratory Rate 18 02/05/18 07:13 Blood Pressure 139/87 02/05/18 07:13 O2 Sat by Pulse Oximetry (%) Skin: Warm and intact. + Dry skin patches on arma and feet. No open areas. A/P Dry Skin: Will order ammonia lactate lotion BID and monitor clinically.
[2018-02-05] MEDS: ATORVASTATIN CA 20 MG TABLET (FP) PO SCH (21:40)
[2018-02-05] MEDS: THIAMINE HCL 100 MG TABLET (FP) PO SCH (21:40)
[2018-02-05] MEDS: AMMONIUM LACTATE 12% LOTION 225 GM BOTTLE TP PRN (21:41)
[2018-02-05] MEDS: NICOTINE POLACRILEX 4 MG GUM BUC PRN (21:42)
[2018-02-06] MEDS: metFORMIN HCL 500 MG TABLET (FP) PO SCH ×2 (06:44→16:40)
[2018-02-06] MEDS: INSULIN SLIDING SCALE (NOVOLOG) 1 VIAL SQ SCH ×2 (06:45→16:41)
[2018-02-06] MEDS ORDERED: INSULIN (NOVOLOG) ASPART 100 UNITS/ML 10ML VIAL ONE ×2 (06:50→16:51)
[2018-02-06] MEDS: ENALAPRIL MALEATE 10 MG TABLET (FP) PO SCH (10:05)
[2018-02-06] MEDS: ASPIRIN 81 MG CHEWABLE TABLETS PO SCH (10:05)
[2018-02-06] MEDS: PANTOPRAZOLE 40 MG TABLET (FP) PO SCH (10:05)
[2018-02-06] MEDS: LORATADINE 10 MG TABLET PO SCH (10:05)
[2018-02-06] MEDS: HYDROCHLOROTHIAZIDE 12.5 MG CAPSULE (FP) PO SCH (10:05)
[2018-02-06] MEDS: PRENATAL VITAMINS W/ FOLIC ACID TABLET (FP) PO SCH (10:05)
[2018-02-06] MEDS: NAPROXEN 500 MG TABLET (FP) PO SCH ×2 (10:05→21:32)
[2018-02-06] MEDS: GABAPENTIN 300 MG CAPSULE (FP) PO SCH ×2 (10:05→21:32)
[2018-02-06] MEDS: MINERAL OIL/PETROLAT/WATER TOPICAL CREAM 113 GM JAR TP SCH (10:06)
[2018-02-06] MEDS: NICOTINE 14 MG/24 HOURS TOPICAL PATCH TD SCH (10:06)
[2018-02-06] MEDS: NICOTINE POLACRILEX 4 MG GUM BUC PRN ×3 (10:07→21:33)
[2018-02-06] MEDS: ATORVASTATIN CA 20 MG TABLET (FP) PO SCH (21:32)
[2018-02-06] MEDS: THIAMINE HCL 100 MG TABLET (FP) PO SCH (21:32)
[2018-02-07] MEDS: INSULIN SLIDING SCALE (NOVOLOG) 1 VIAL SQ SCH ×2 (06:23→16:49)
[2018-02-07] MEDS: metFORMIN HCL 500 MG TABLET (FP) PO SCH ×2 (06:23→16:47)
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
[2018-02-07] MEDS: NAPROXEN 500 MG TABLET (FP) PO SCH ×2 (10:32→22:09)
[2018-02-07] MEDS: GABAPENTIN 300 MG CAPSULE (FP) PO SCH ×2 (10:32→22:09)
[2018-02-07] MEDS: LORATADINE 10 MG TABLET PO SCH (10:32)
[2018-02-07] MEDS: ENALAPRIL MALEATE 10 MG TABLET (FP) PO SCH (10:32)
[2018-02-07] MEDS: PRENATAL VITAMINS W/ FOLIC ACID TABLET (FP) PO SCH (10:32)
[2018-02-07] MEDS: ASPIRIN 81 MG CHEWABLE TABLETS PO SCH (10:32)
[2018-02-07] MEDS: NICOTINE 14 MG/24 HOURS TOPICAL PATCH TD SCH (10:33)
[2018-02-07] MEDS: HYDROCHLOROTHIAZIDE 12.5 MG CAPSULE (FP) PO SCH (10:33)
[2018-02-07] MEDS: PANTOPRAZOLE 40 MG TABLET (FP) PO SCH (10:33)
[2018-02-07] MEDS: MINERAL OIL/PETROLAT/WATER TOPICAL CREAM 113 GM JAR TP SCH (10:34)
[2018-02-07] MEDS: NICOTINE POLACRILEX 4 MG GUM BUC PRN ×3 (10:35→19:03)
[2018-02-07] MEDS: THIAMINE HCL 100 MG TABLET (FP) PO SCH (22:08)
[2018-02-07] MEDS: ATORVASTATIN CA 20 MG TABLET (FP) PO SCH (22:09)
[2018-02-07] MEDS: COLLOIDAL OATMEAL 1 BAR EACH TP PRN (22:30)
[2018-02-08] MEDS: metFORMIN HCL 500 MG TABLET (FP) PO SCH ×2 (06:39→16:55)
[2018-02-08] MEDS: INSULIN SLIDING SCALE (NOVOLOG) 1 VIAL SQ SCH ×2 (06:40→17:08)
[2018-02-08] MEDS ORDERED: INSULIN (NOVOLOG) ASPART 100 UNITS/ML 10ML VIAL ONE ×2 (06:53→17:06)
[2018-02-08] MEDS: NAPROXEN 500 MG TABLET (FP) PO SCH ×2 (10:30→21:54)
[2018-02-08] MEDS: ENALAPRIL MALEATE 10 MG TABLET (FP) PO SCH (10:30)
[2018-02-08] MEDS: GABAPENTIN 300 MG CAPSULE (FP) PO SCH ×2 (10:30→21:54)
[2018-02-08] MEDS: LORATADINE 10 MG TABLET PO SCH (10:30)
[2018-02-08] MEDS: ASPIRIN 81 MG CHEWABLE TABLETS PO SCH (10:30)
[2018-02-08] MEDS: HYDROCHLOROTHIAZIDE 12.5 MG CAPSULE (FP) PO SCH (10:30)
[2018-02-08] MEDS: PANTOPRAZOLE 40 MG TABLET (FP) PO SCH (10:30)
[2018-02-08] MEDS: PRENATAL VITAMINS W/ FOLIC ACID TABLET (FP) PO SCH (10:30)
[2018-02-08] MEDS: MINERAL OIL/PETROLAT/WATER TOPICAL CREAM 113 GM JAR TP SCH (10:30)
[2018-02-08] MEDS: NICOTINE 14 MG/24 HOURS TOPICAL PATCH TD SCH (10:30)
[2018-02-08] MEDS: NICOTINE POLACRILEX 4 MG GUM BUC PRN ×2 (10:32→18:58)
[2018-02-08] MEDS: THIAMINE HCL 100 MG TABLET (FP) PO SCH (21:54)
[2018-02-08] MEDS: ATORVASTATIN CA 20 MG TABLET (FP) PO SCH (21:54)
[2018-02-09] MEDS ORDERED: INSULIN SLIDING SCALE (NOVOLOG) 1 VIAL SQ ONE ×2 (06:37→16:47)
[2018-02-09] MEDS: INSULIN SLIDING SCALE (NOVOLOG) 1 VIAL SQ SCH ×2 (06:38→16:47)
[2018-02-09] MEDS: metFORMIN HCL 500 MG TABLET (FP) PO SCH ×2 (06:38→16:47)
[2018-02-09] MEDS: HYDROCHLOROTHIAZIDE 12.5 MG CAPSULE (FP) PO SCH (10:46)
[2018-02-09] MEDS: PRENATAL VITAMINS W/ FOLIC ACID TABLET (FP) PO SCH (10:47)
[2018-02-09] MEDS: LORATADINE 10 MG TABLET PO SCH (10:47)
[2018-02-09] MEDS: GABAPENTIN 300 MG CAPSULE (FP) PO SCH ×2 (10:47→21:55)
[2018-02-09] MEDS: ENALAPRIL MALEATE 10 MG TABLET (FP) PO SCH (10:47)
[2018-02-09] MEDS: NAPROXEN 500 MG TABLET (FP) PO SCH ×2 (10:47→21:55)
[2018-02-09] MEDS: PANTOPRAZOLE 40 MG TABLET (FP) PO SCH (10:47)
[2018-02-09] MEDS: ASPIRIN 81 MG CHEWABLE TABLETS PO SCH (10:47)
[2018-02-09] MEDS: MINERAL OIL/PETROLAT/WATER TOPICAL CREAM 113 GM JAR TP SCH (10:48)
[2018-02-09] MEDS: NICOTINE 14 MG/24 HOURS TOPICAL PATCH TD SCH (10:48)
[2018-02-09] MEDS: NICOTINE POLACRILEX 4 MG GUM BUC PRN ×3 (10:49→21:56)
[2018-02-09] MEDS: ATORVASTATIN CA 20 MG TABLET (FP) PO SCH (21:55)
[2018-02-09] MEDS: THIAMINE HCL 100 MG TABLET (FP) PO SCH (21:55)
[2018-02-10] MEDS: metFORMIN HCL 500 MG TABLET (FP) PO SCH ×2 (06:47→16:36)
[2018-02-10] MEDS: NICOTINE POLACRILEX 4 MG GUM BUC PRN ×5 (06:48→21:45)
[2018-02-10] MEDS: INSULIN SLIDING SCALE (NOVOLOG) 1 VIAL SQ SCH ×2 (06:54→16:36)
[2018-02-10] MEDS: NAPROXEN 500 MG TABLET (FP) PO SCH ×2 (10:12→21:42)
[2018-02-10] MEDS: NICOTINE 14 MG/24 HOURS TOPICAL PATCH TD SCH (10:12)
[2018-02-10] MEDS: ASPIRIN 81 MG CHEWABLE TABLETS PO SCH (10:12)
[2018-02-10] MEDS: GABAPENTIN 300 MG CAPSULE (FP) PO SCH ×2 (10:12→21:42)
[2018-02-10] MEDS: ENALAPRIL MALEATE 10 MG TABLET (FP) PO SCH (10:12)
[2018-02-10] MEDS: HYDROCHLOROTHIAZIDE 12.5 MG CAPSULE (FP) PO SCH (10:12)
[2018-02-10] MEDS: LORATADINE 10 MG TABLET PO SCH (10:12)
[2018-02-10] MEDS: PANTOPRAZOLE 40 MG TABLET (FP) PO SCH (10:12)
[2018-02-10] MEDS: PRENATAL VITAMINS W/ FOLIC ACID TABLET (FP) PO SCH (10:12)
[2018-02-10] MEDS: MINERAL OIL/PETROLAT/WATER TOPICAL CREAM 113 GM JAR TP SCH (10:13)
[2018-02-10] MEDS ORDERED: INSULIN SLIDING SCALE (NOVOLOG) 1 VIAL SQ ONE (16:34)
[2018-02-10] MEDS: ATORVASTATIN CA 20 MG TABLET (FP) PO SCH (21:42)
[2018-02-10] MEDS: THIAMINE HCL 100 MG TABLET (FP) PO SCH (21:42)
[2018-02-11] MEDS: metFORMIN HCL 500 MG TABLET (FP) PO SCH ×2 (07:00→16:45)
[2018-02-11] MEDS ORDERED: INSULIN SLIDING SCALE (NOVOLOG) 1 VIAL SQ ONE (07:01)
[2018-02-11] MEDS: INSULIN SLIDING SCALE (NOVOLOG) 1 VIAL SQ SCH ×2 (07:02→16:47)
[2018-02-11] MEDS: GABAPENTIN 300 MG CAPSULE (FP) PO SCH ×2 (10:26→21:44)
[2018-02-11] MEDS: LORATADINE 10 MG TABLET PO SCH (10:26)
[2018-02-11] MEDS: ENALAPRIL MALEATE 10 MG TABLET (FP) PO SCH (10:26)
[2018-02-11] MEDS: ASPIRIN 81 MG CHEWABLE TABLETS PO SCH (10:26)
[2018-02-11] MEDS: NICOTINE 14 MG/24 HOURS TOPICAL PATCH TD SCH (10:26)
[2018-02-11] MEDS: HYDROCHLOROTHIAZIDE 12.5 MG CAPSULE (FP) PO SCH (10:26)
[2018-02-11] MEDS: NAPROXEN 500 MG TABLET (FP) PO SCH ×2 (10:26→21:44)
[2018-02-11] MEDS: PRENATAL VITAMINS W/ FOLIC ACID TABLET (FP) PO SCH (10:26)
[2018-02-11] MEDS: PANTOPRAZOLE 40 MG TABLET (FP) PO SCH (10:27)
[2018-02-11] MEDS: AMMONIUM LACTATE 12% LOTION 225 GM BOTTLE TP PRN (10:28)
[2018-02-11] MEDS: MINERAL OIL/PETROLAT/WATER TOPICAL CREAM 113 GM JAR TP SCH (10:29)
[2018-02-11] MEDS: NICOTINE POLACRILEX 4 MG GUM BUC PRN ×3 (10:30→21:45)
[2018-02-11] MEDS: ATORVASTATIN CA 20 MG TABLET (FP) PO SCH (21:44)
[2018-02-11] MEDS: THIAMINE HCL 100 MG TABLET (FP) PO SCH (21:44)
[2018-02-12] MEDS: INSULIN SLIDING SCALE (NOVOLOG) 1 VIAL SQ SCH ×2 (06:53→16:38)
[2018-02-12] MEDS: metFORMIN HCL 500 MG TABLET (FP) PO SCH ×2 (06:53→16:38)
[2018-02-12] MEDS ORDERED: INSULIN (NOVOLOG) ASPART 100 UNITS/ML 10ML VIAL ONE (07:01)
[2018-02-12] MEDS: PANTOPRAZOLE 40 MG TABLET (FP) PO SCH (11:00)
[2018-02-12] MEDS: HYDROCHLOROTHIAZIDE 12.5 MG CAPSULE (FP) PO SCH (11:00)
[2018-02-12] MEDS: PRENATAL VITAMINS W/ FOLIC ACID TABLET (FP) PO SCH (11:00)
[2018-02-12] MEDS: NAPROXEN 500 MG TABLET (FP) PO SCH ×2 (11:00→22:01)
[2018-02-12] MEDS: GABAPENTIN 300 MG CAPSULE (FP) PO SCH ×2 (11:00→22:01)
[2018-02-12] MEDS: MINERAL OIL/PETROLAT/WATER TOPICAL CREAM 113 GM JAR TP SCH (11:00)
[2018-02-12] MEDS: ASPIRIN 81 MG CHEWABLE TABLETS PO SCH (11:00)
[2018-02-12] MEDS: ENALAPRIL MALEATE 10 MG TABLET (FP) PO SCH (11:00)
[2018-02-12] MEDS: NICOTINE 14 MG/24 HOURS TOPICAL PATCH TD SCH (11:00)
[2018-02-12] MEDS: LORATADINE 10 MG TABLET PO SCH (11:00)
[2018-02-12] MEDS: NICOTINE POLACRILEX 4 MG GUM BUC PRN ×3 (11:07→22:02)
[2018-02-12] MEDS ORDERED: INSULIN SLIDING SCALE (NOVOLOG) 1 VIAL SQ ONE (16:37)
[2018-02-12] MEDS: ATORVASTATIN CA 20 MG TABLET (FP) PO SCH (22:01)
[2018-02-12] MEDS: THIAMINE HCL 100 MG TABLET (FP) PO SCH (22:02)
[2018-02-13] MEDS: metFORMIN HCL 500 MG TABLET (FP) PO SCH ×2 (06:28→17:07)
[2018-02-13] MEDS: NICOTINE POLACRILEX 4 MG GUM BUC PRN ×3 (06:29→20:23)
[2018-02-13] MEDS: INSULIN SLIDING SCALE (NOVOLOG) 1 VIAL SQ SCH ×2 (06:29→17:11)
[2018-02-13] MEDS: LORATADINE 10 MG TABLET PO SCH (10:32)
[2018-02-13] MEDS: ENALAPRIL MALEATE 10 MG TABLET (FP) PO SCH (10:32)
[2018-02-13] MEDS: NICOTINE 14 MG/24 HOURS TOPICAL PATCH TD SCH (10:32)
[2018-02-13] MEDS: ASPIRIN 81 MG CHEWABLE TABLETS PO SCH (10:32)
[2018-02-13] MEDS: HYDROCHLOROTHIAZIDE 12.5 MG CAPSULE (FP) PO SCH (10:32)
[2018-02-13] MEDS: PANTOPRAZOLE 40 MG TABLET (FP) PO SCH (10:32)
[2018-02-13] MEDS: PRENATAL VITAMINS W/ FOLIC ACID TABLET (FP) PO SCH (10:32)
[2018-02-13] MEDS: GABAPENTIN 300 MG CAPSULE (FP) PO SCH ×2 (10:32→21:52)
[2018-02-13] MEDS: MINERAL OIL/PETROLAT/WATER TOPICAL CREAM 113 GM JAR TP SCH (10:32)
[2018-02-13] MEDS: NAPROXEN 500 MG TABLET (FP) PO SCH ×2 (10:32→21:52)
[2018-02-13] MEDS: COLLOIDAL OATMEAL 1 BAR EACH TP PRN (10:34)
[2018-02-13] MEDS ORDERED: INSULIN SLIDING SCALE (NOVOLOG) 1 VIAL SQ ONE (17:09)
[2018-02-13] MEDS: THIAMINE HCL 100 MG TABLET (FP) PO SCH (21:52)
[2018-02-13] MEDS: ATORVASTATIN CA 20 MG TABLET (FP) PO SCH (21:53)
[2018-02-14] MEDS: INSULIN SLIDING SCALE (NOVOLOG) 1 VIAL SQ SCH ×2 (06:32→16:46)
[2018-02-14] MEDS: metFORMIN HCL 500 MG TABLET (FP) PO SCH ×2 (06:32→16:45)
[2018-02-14] MEDS: NICOTINE POLACRILEX 4 MG GUM BUC PRN ×4 (06:32→22:50)
[2018-02-14] MEDS: ASPIRIN 81 MG CHEWABLE TABLETS PO SCH (10:33)
[2018-02-14] MEDS: NAPROXEN 500 MG TABLET (FP) PO SCH ×2 (10:34→21:43)
[2018-02-14] MEDS: PANTOPRAZOLE 40 MG TABLET (FP) PO SCH (10:34)
[2018-02-14] MEDS: PRENATAL VITAMINS W/ FOLIC ACID TABLET (FP) PO SCH (10:34)
[2018-02-14] MEDS: GABAPENTIN 300 MG CAPSULE (FP) PO SCH ×2 (10:34→21:43)
[2018-02-14] MEDS: LORATADINE 10 MG TABLET PO SCH (10:34)
[2018-02-14] MEDS: HYDROCHLOROTHIAZIDE 12.5 MG CAPSULE (FP) PO SCH (10:34)
[2018-02-14] MEDS: NICOTINE 14 MG/24 HOURS TOPICAL PATCH TD SCH (10:34)
[2018-02-14] MEDS: ENALAPRIL MALEATE 10 MG TABLET (FP) PO SCH (10:34)
[2018-02-14] MEDS: AMMONIUM LACTATE 12% LOTION 225 GM BOTTLE TP PRN (10:35)
[2018-02-14] MEDS: MINERAL OIL/PETROLAT/WATER TOPICAL CREAM 113 GM JAR TP SCH (10:38)
[2018-02-14] MEDS ORDERED: NICOTINE POLACRILEX 4 MG GUM BUC ONE (16:48)
[2018-02-14] MEDS ORDERED: INSULIN (NOVOLOG) ASPART 100 UNITS/ML 10ML VIAL ONE (16:48)
[2018-02-14] MEDS: ATORVASTATIN CA 20 MG TABLET (FP) PO SCH (21:43)
[2018-02-14] MEDS: THIAMINE HCL 100 MG TABLET (FP) PO SCH (21:43)
[2018-02-15] MEDS: metFORMIN HCL 500 MG TABLET (FP) PO SCH ×2 (06:36→16:51)
[2018-02-15] MEDS: INSULIN SLIDING SCALE (NOVOLOG) 1 VIAL SQ SCH ×2 (06:36→16:51)
[2018-02-15] MEDS: NICOTINE POLACRILEX 4 MG GUM BUC PRN ×2 (06:36→10:45)
[2018-02-15] MEDS: NAPROXEN 500 MG TABLET (FP) PO SCH ×2 (10:43→23:30)
[2018-02-15] MEDS: ASPIRIN 81 MG CHEWABLE TABLETS PO SCH (10:43)
[2018-02-15] MEDS: LORATADINE 10 MG TABLET PO SCH (10:43)
[2018-02-15] MEDS: ENALAPRIL MALEATE 10 MG TABLET (FP) PO SCH (10:43)
[2018-02-15] MEDS: PANTOPRAZOLE 40 MG TABLET (FP) PO SCH (10:43)
[2018-02-15] MEDS: HYDROCHLOROTHIAZIDE 12.5 MG CAPSULE (FP) PO SCH (10:43)
[2018-02-15] MEDS: NICOTINE 14 MG/24 HOURS TOPICAL PATCH TD SCH (10:43)
[2018-02-15] MEDS: GABAPENTIN 300 MG CAPSULE (FP) PO SCH ×2 (10:43→23:29)
[2018-02-15] MEDS: PRENATAL VITAMINS W/ FOLIC ACID TABLET (FP) PO SCH (10:44)
[2018-02-15] MEDS: MINERAL OIL/PETROLAT/WATER TOPICAL CREAM 113 GM JAR TP SCH (10:45)
[2018-02-15] MEDS ORDERED: INSULIN (NOVOLOG) ASPART 100 UNITS/ML 10ML VIAL ONE (17:03)
--- NOTE | 2018-02-15 19:18 | PN ---
[facility] Progress Note Note: Patient reports, when he looks at the light all he sees is red from his right eye for about a week. As per patient this has happen to him before 8 months ago when he had a hemorrhage from his right eye. As per patient he was treated with laser eye surgery. Patient denies eye pain or decrease vision. No SOB, Dyspnea, CP . Reports light sensitivity and floaters. Vital Signs Temperature 98.2 F 02/15/18 07:00 Pulse Rate 100 H 02/15/18 10:00 Respiratory Rate 18 02/15/18 07:00 Blood Pressure 146/79 02/15/18 10:00 O2 Sat by Pulse Oximetry (%) Laboratory Last Values POC Glucometer 338 UNITS (80-120) 02/15/18 16:50 Patient AOx3, no apparent distress + light sensitivity, no redness or foreign objects in the eyes or discharge Lungs clear, no adventitious breath sounds Normal heart rate and rhythm Plan: Patient sent to [facility] for further evaluation. Multiple attempts were made to give report without success
[2018-02-15] MEDS: THIAMINE HCL 100 MG TABLET (FP) PO SCH (23:29)
[2018-02-15] MEDS: ATORVASTATIN CA 20 MG TABLET (FP) PO SCH (23:30)
[2018-02-16] MEDS: INSULIN SLIDING SCALE (NOVOLOG) 1 VIAL SQ SCH ×2 (06:49→16:42)
[2018-02-16] MEDS: metFORMIN HCL 500 MG TABLET (FP) PO SCH ×2 (06:49→16:41)
[2018-02-16] MEDS: NAPROXEN 500 MG TABLET (FP) PO SCH ×2 (10:20→21:47)
[2018-02-16] MEDS: LORATADINE 10 MG TABLET PO SCH (10:20)
[2018-02-16] MEDS: PRENATAL VITAMINS W/ FOLIC ACID TABLET (FP) PO SCH (10:20)
[2018-02-16] MEDS: PANTOPRAZOLE 40 MG TABLET (FP) PO SCH (10:20)
[2018-02-16] MEDS: ENALAPRIL MALEATE 10 MG TABLET (FP) PO SCH (10:20)
[2018-02-16] MEDS: GABAPENTIN 300 MG CAPSULE (FP) PO SCH ×2 (10:20→21:47)
[2018-02-16] MEDS: HYDROCHLOROTHIAZIDE 12.5 MG CAPSULE (FP) PO SCH (10:20)
[2018-02-16] MEDS: ASPIRIN 81 MG CHEWABLE TABLETS PO SCH (10:20)
[2018-02-16] MEDS: MINERAL OIL/PETROLAT/WATER TOPICAL CREAM 113 GM JAR TP SCH (10:21)
[2018-02-16] MEDS: NICOTINE POLACRILEX 4 MG GUM BUC PRN ×4 (10:21→21:48)
[2018-02-16] MEDS: NICOTINE 14 MG/24 HOURS TOPICAL PATCH TD SCH (10:21)
[2018-02-16] MEDS: ATORVASTATIN CA 20 MG TABLET (FP) PO SCH (21:47)
[2018-02-16] MEDS: THIAMINE HCL 100 MG TABLET (FP) PO SCH (21:47)
[2018-02-17] MEDS: INSULIN SLIDING SCALE (NOVOLOG) 1 VIAL SQ SCH ×2 (06:35→16:42)
[2018-02-17] MEDS: metFORMIN HCL 500 MG TABLET (FP) PO SCH ×2 (06:35→16:38)
[2018-02-17] MEDS: ASPIRIN 81 MG CHEWABLE TABLETS PO SCH (10:17)
[2018-02-17] MEDS: ENALAPRIL MALEATE 10 MG TABLET (FP) PO SCH (10:17)
[2018-02-17] MEDS: LORATADINE 10 MG TABLET PO SCH (10:17)
[2018-02-17] MEDS: HYDROCHLOROTHIAZIDE 12.5 MG CAPSULE (FP) PO SCH (10:17)
[2018-02-17] MEDS: NAPROXEN 500 MG TABLET (FP) PO SCH ×2 (10:17→21:49)
[2018-02-17] MEDS: PANTOPRAZOLE 40 MG TABLET (FP) PO SCH (10:17)
[2018-02-17] MEDS: GABAPENTIN 300 MG CAPSULE (FP) PO SCH ×2 (10:17→21:49)
[2018-02-17] MEDS: PRENATAL VITAMINS W/ FOLIC ACID TABLET (FP) PO SCH (10:17)
[2018-02-17] MEDS: NICOTINE 14 MG/24 HOURS TOPICAL PATCH TD SCH (10:18)
[2018-02-17] MEDS: MINERAL OIL/PETROLAT/WATER TOPICAL CREAM 113 GM JAR TP SCH (10:18)
[2018-02-17] MEDS: NICOTINE POLACRILEX 4 MG GUM BUC PRN ×3 (10:20→21:51)
[2018-02-17] MEDS ORDERED: INSULIN SLIDING SCALE (NOVOLOG) 1 VIAL SQ ONE (16:40)
[2018-02-17] MEDS: ATORVASTATIN CA 20 MG TABLET (FP) PO SCH (21:49)
[2018-02-17] MEDS: THIAMINE HCL 100 MG TABLET (FP) PO SCH (21:49)
[2018-02-18] MEDS: metFORMIN HCL 500 MG TABLET (FP) PO SCH ×2 (06:31→16:51)
[2018-02-18] MEDS: INSULIN SLIDING SCALE (NOVOLOG) 1 VIAL SQ SCH ×2 (06:31→16:54)
[2018-02-18] MEDS: NICOTINE POLACRILEX 4 MG GUM BUC PRN ×3 (06:33→21:55)
[2018-02-18] MEDS: ASPIRIN 81 MG CHEWABLE TABLETS PO SCH (10:24)
[2018-02-18] MEDS: HYDROCHLOROTHIAZIDE 12.5 MG CAPSULE (FP) PO SCH (10:24)
[2018-02-18] MEDS: GABAPENTIN 300 MG CAPSULE (FP) PO SCH ×2 (10:24→21:52)
[2018-02-18] MEDS: NAPROXEN 500 MG TABLET (FP) PO SCH ×2 (10:24→21:52)
[2018-02-18] MEDS: LORATADINE 10 MG TABLET PO SCH (10:24)
[2018-02-18] MEDS: ENALAPRIL MALEATE 10 MG TABLET (FP) PO SCH (10:24)
[2018-02-18] MEDS: PANTOPRAZOLE 40 MG TABLET (FP) PO SCH (10:24)
[2018-02-18] MEDS: NICOTINE 14 MG/24 HOURS TOPICAL PATCH TD SCH (10:25)
[2018-02-18] MEDS: PRENATAL VITAMINS W/ FOLIC ACID TABLET (FP) PO SCH (10:25)
[2018-02-18] MEDS: MINERAL OIL/PETROLAT/WATER TOPICAL CREAM 113 GM JAR TP SCH (10:26)
[2018-02-18] MEDS ORDERED: INSULIN SLIDING SCALE (NOVOLOG) 1 VIAL SQ ONE (16:53)
[2018-02-18] MEDS: ATORVASTATIN CA 20 MG TABLET (FP) PO SCH (21:52)
[2018-02-18] MEDS: THIAMINE HCL 100 MG TABLET (FP) PO SCH (21:52)
[2018-02-19] MEDS: metFORMIN HCL 500 MG TABLET (FP) PO SCH ×2 (06:31→16:43)
[2018-02-19] MEDS: INSULIN SLIDING SCALE (NOVOLOG) 1 VIAL SQ SCH ×2 (06:31→16:47)
[2018-02-19] MEDS: NICOTINE POLACRILEX 4 MG GUM BUC PRN ×4 (06:31→20:30)
[2018-02-19] MEDS: ENALAPRIL MALEATE 10 MG TABLET (FP) PO SCH (09:31)
[2018-02-19] MEDS: PRENATAL VITAMINS W/ FOLIC ACID TABLET (FP) PO SCH (09:31)
[2018-02-19] MEDS: HYDROCHLOROTHIAZIDE 12.5 MG CAPSULE (FP) PO SCH (09:31)
[2018-02-19] MEDS: PANTOPRAZOLE 40 MG TABLET (FP) PO SCH (09:31)
[2018-02-19] MEDS: LORATADINE 10 MG TABLET PO SCH (09:31)
[2018-02-19] MEDS: ASPIRIN 81 MG CHEWABLE TABLETS PO SCH (09:31)
[2018-02-19] MEDS: GABAPENTIN 300 MG CAPSULE (FP) PO SCH ×2 (09:32→21:58)
[2018-02-19] MEDS: NAPROXEN 500 MG TABLET (FP) PO SCH ×2 (09:32→21:57)
[2018-02-19] MEDS: MINERAL OIL/PETROLAT/WATER TOPICAL CREAM 113 GM JAR TP SCH (09:33)
[2018-02-19] MEDS: NICOTINE 14 MG/24 HOURS TOPICAL PATCH TD SCH (09:33)
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
[2018-02-19] MEDS ORDERED: INSULIN SLIDING SCALE (NOVOLOG) 1 VIAL SQ ONE ×2 (16:45→16:46)
[2018-02-19] MEDS: ATORVASTATIN CA 20 MG TABLET (FP) PO SCH (21:57)
[2018-02-19] MEDS: THIAMINE HCL 100 MG TABLET (FP) PO SCH (21:58)
[2018-02-19] MEDS: COLLOIDAL OATMEAL 1 BAR EACH TP PRN (21:59)
[2018-02-20] MEDS: INSULIN SLIDING SCALE (NOVOLOG) 1 VIAL SQ SCH (06:42)
[2018-02-20] MEDS: metFORMIN HCL 500 MG TABLET (FP) PO SCH (06:42)
[2018-02-20 06:56] VITALS: BP 143/85; PULSE 83; TEMP 98.4
== END 2018-02-20 06:40 | disposition home or self-care (01) | DRG 772 ==
LOC: YASAS 14:07 → Y5N 17:59
PROVIDERS: ADMIT Psychiatry & Neurology Psychiatry; ATTEND Psychiatry & Neurology Psychiatry
PROC: HZ42ZZZ Group Counseling for Substance Abuse Treatment, Cognitive-Behavioral (ICD-10-PCS; principal; 2018-01-24)
DX: F10.230 Alcohol dependence with withdrawal, uncomplicated (principal); F14.20 Cocaine dependence, uncomplicated; F12.20 Cannabis dependence, uncomplicated; F17.210 Nicotine dependence, cigarettes, uncomplicated; I10 Essential (primary) hypertension; E11.9 Type 2 diabetes mellitus without complications; L85.3 Xerosis cutis; K59.00 Constipation, unspecified; Z87.828 Personal history of other (healed) physical injury and trauma
CPT/HCPCS: 82962; 93005; 93010

== ENCOUNTER 2018-02-15 21:10 | Emergency (ER) | payer OTHER ==
--- NOTE | 2018-02-15 21:16 | PDOC ---
Rapid Medical Evaluation Time Seen by Provider: 02/15/18 21:15 Medical Evaluation: Allergies Allergy/AdvReac Type Severity Reaction Status Date / Time No Known Allergies Allergy Verified 01/24/18 18:42 02/15/18 21:15 I have performed a brief in-person evaluation of this patient. The patient presents with a chief complaint of: c/o "feel blood in my eyes", sent by [employer] at [facility] [place] after neg evaluation Pertinent physical exam findings: unremarkable PE I have ordered the following: nothing The patient will proceed to the ED for further evaluation. Discharge Disposition - Diagnosis Eye problem - Referrals - Patient Instructions - Post Discharge Activity
[2018-02-15 21:27] VITALS: BP 113/90; PULSE 93; TEMP 98.4; BMI 37.7
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
== END 2018-02-15 22:45 | disposition home or self-care (01) ==
LOC: JERFT 21:10 → JER 21:10 → JERFT 22:45
DX: H43.391 Other vitreous opacities, right eye (principal); I10 Essential (primary) hypertension; E11.9 Type 2 diabetes mellitus without complications; E78.00 Pure hypercholesterolemia, unspecified; Z79.84 Long term (current) use of oral hypoglycemic drugs
CPT/HCPCS: 99281-25

== ENCOUNTER 2018-08-12 12:38 | Inpatient (IN) | payer OTHER ==
[2018-08-12 13:15] VITALS: BMI 37.0
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
[2018-08-12] MEDS ORDERED: NAPROXEN 500 MG TABLET (FP) PO PRN (17:52)
[2018-08-12] MEDS ORDERED: chlordiazePOXIDE HCL 25 MG CAPSULE PO PRN (17:55)
[2018-08-12] MEDS ORDERED: guaiFENesin/D-METHORPHAN HB 10 ML UNIT-DOSE CUPS PO PRN (18:06)
[2018-08-12] MEDS ORDERED: MAGNESIUM CITRATE 300 ML BOTTLE PO PRN (18:06)
[2018-08-12] MEDS ORDERED: IBUPROFEN 400 MG TABLET (FP) PO PRN (18:06)
[2018-08-12] MEDS ORDERED: MAGNESIUM HYDROX 2400MG/30ML ORAL SUSPENSION 30 ML CUP PO PRN (18:06)
[2018-08-12] MEDS ORDERED: LOPERAMIDE HCL 2 MG CAPSULE PO PRN (18:06)
[2018-08-12] MEDS ORDERED: MENTHOL/PHENOL 1 EACH UD MM PRN (18:06)
[2018-08-12] MEDS ORDERED: hydrOXYzine PAMOATE 50 MG CAPSULE (FP) PO PRN (18:06)
[2018-08-12] MEDS ORDERED: ACETAMINOPHEN 325 MG TABLET (FP) PO PRN (18:06)
[2018-08-12] MEDS ORDERED: MAG HYDROX/AL HYDROX/SIMETH 30 ML UNIT-DOSE CUP PO PRN (18:06)
[2018-08-12] MEDS ORDERED: P-EPHED 60MG/TRIPROLIDI 2.5MG TABLET PO PRN (18:06)
[2018-08-12] MEDS ORDERED: NICOTINE POLACRILEX 4 MG GUM BUC PRN (18:06)
[2018-08-12] MEDS: LORATADINE 10 MG TABLET PO SCH (19:17)
[2018-08-12] MEDS ORDERED: MELATONIN 5 MG TABLETS PO PRN (22:00)
[2018-08-12] MEDS: THIAMINE HCL 100 MG TABLET (FP) PO SCH (22:30)
[2018-08-12] MEDS: chlordiazePOXIDE HCL 25 MG CAPSULE PO SCH (22:30)
[2018-08-12] MEDS: ATORVASTATIN CA 10 MG TABLET (FP) PO SCH (22:30)
[2018-08-12] MEDS: GABAPENTIN 300 MG CAPSULE (FP) PO SCH (22:30)
[2018-08-12] MEDS: metFORMIN HCL 500 MG TABLET (FP) PO SCH (22:33)
[2018-08-12 22:49] LABS: URINE APPEARANCE TURBID; URINE BILIRUBIN NEGATIVE (<2.0 mg/dL); URINE COLOR YELLOW; URINE GLUCOSE (UA) NEGATIVE (NEGATIVE); URINE KETONE 1+ (NEGATIVE); URINE LEUK ESTERASE NEGATIVE (NEGATIVE); URINE NITRITE NEGATIVE (NEGATIVE); URINE PROTEIN 1+ (NEGATIVE); URINE UROBILINOGEN NEGATIVE mg/dL (0.2-1.0)
[2018-08-12 22:56] LABS: URINE MUCUS MANY
[2018-08-13] MEDS: chlordiazePOXIDE HCL 25 MG CAPSULE PO SCH ×4 (06:17→23:40)
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
[2018-08-13 10:20] LABS: HEMOGLOBIN 12.2 GM/dL (11.7-16.9); MCH 27.7 pg (25.7-33.7); MCHC 32.2 g/dl (32.0-35.9); MEAN CELL VOLUME 86.3 fl (80-96); MEAN PLT VOLUME 7.6 fl (7.5-11.1); PLATELET COUNT 207 K/MM3 (134-434); RBC 4.41 M/mm3 (4.00-5.60); RDW 14.7 % (11.9-15.9); WHITE BLOOD COUNT 5.6 K/mm3 (4.0-10.0)
[2018-08-13 10:24] LABS: ALBUMIN 3.3 g/dl (3.4-5.0); ALK PHOS 55 U/L (45-117); ANION GAP 7 MMOL/L (8-16); BILIRUBIN,TOTAL 0.2 mg/dL (0.2-1); BLOOD UREA NITROGEN 23 mg/dL (7-18); CALCIUM 8.5 mg/dL (8.5-10.1); CHLORIDE 107 mmol/L (98-107); CO2 26 mmol/L (21-32); GLUCOSE,RANDOM 188 mg/dL (74-106); POTASSIUM 4.1 mmol/L (3.5-5.1); SGOT/AST 17 U/L (15-37); SGPT/ALT 25 U/L (13-61); SODIUM 140 mmol/L (136-145); TOT PROT 6.5 g/dl (6.4-8.2)
[2018-08-13] MEDS: PRENATAL VITAMINS W/ FOLIC ACID TABLET (FP) PO SCH (10:34)
[2018-08-13] MEDS: ASPIRIN 81 MG CHEWABLE TABLETS PO SCH (10:34)
[2018-08-13] MEDS: LORATADINE 10 MG TABLET PO SCH (10:35)
[2018-08-13] MEDS: metFORMIN HCL 500 MG TABLET (FP) PO SCH ×2 (10:35→23:40)
[2018-08-13] MEDS: ENALAPRIL MALEATE 10 MG TABLET (FP) PO SCH (10:35)
[2018-08-13] MEDS: GABAPENTIN 300 MG CAPSULE (FP) PO SCH ×2 (10:35→23:40)
[2018-08-13] MEDS: HYDROCHLOROTHIAZIDE 25 MG TABLET (FP) PO SCH (10:36)
--- NOTE | 2018-08-13 10:42 | EKG ---
Test Reason : Blood Pressure : / mmHG Vent. Rate : 071 BPM Atrial Rate : 071 BPM P-R Int : 178 ms QRS Dur : 074 ms QT Int : 392 ms P-R-T Axes : 069 -32 021 degrees QTc Int : 425 ms NORMAL SINUS RHYTHM LEFT AXIS DEVIATION ABNORMAL ECG WHEN COMPARED WITH ECG OF 25-JAN-2018 07:06, T WAVE VARIATION Confirmed by NATAN RASMUSSEN MD ([id number]) on 08/13/2018 10:41:56 AM Referred By: Confirmed By:NATAN RASMUSSEN MD
--- NOTE | 2018-08-13 11:07 | PN ---
[facility] CIWA - CIWA Score Nausea/Vomitin-Mild Nausea/No Vomiting Muscle Tremors: 4-Moderate,w/Arms Extend Anxiety: 3 Agitation: 3 Paroxysmal Sweats: 1-Minimal Palms Moist Orientation: 1-Uncertain about Date Tacttile Disturbances: 0-None Auditory Disturbances: 0-None Visual Disturbances: 0-None Headache: 1-Very Mild CIWA-Ar Total Score: 14 S Progress Note (SOAP) Subjective: sweat tremor restlessness anxiety disoriented to date trouble sleep at night Objective: 08/13/18 11:06 Vital Signs Temperature 98.1 F 08/13/18 09:24 Pulse Rate 73 08/13/18 09:24 Respiratory Rate 18 08/13/18 09:24 Blood Pressure 114/64 08/13/18 09:24 O2 Sat by Pulse Oximetry (%) Laboratory Last Values WBC 5.6 K/mm3 (4.0-10.0) 08/13/18 07:00 RBC 4.41 M/mm3 (4.00-5.60) 08/13/18 07:00 Hgb 12.2 GM/dL (11.7-16.9) 08/13/18 07:00 Hct 38.0 % (35.4-49) 08/13/18 07:00 MCV 86.3 fl (80-96) 08/13/18 07:00 MCH 27.7 pg (25.7-33.7) 08/13/18 07:00 MCHC 32.2 g/dl (32.0-35.9) 08/13/18 07:00 RDW 14.7 % (11.9-15.9) 08/13/18 07:00 Plt Count 207 K/MM3 (134-434) D 08/13/18 07:00 MPV 7.6 fl (7.5-11.1) 08/13/18 07:00 Sodium 140 mmol/L (136-145) 08/13/18 07:00 Potassium 4.1 mmol/L (3.5-5.1) 08/13/18 07:00 Chloride 107 mmol/L (98-107) 08/13/18 07:00 Carbon Dioxide 26 mmol/L (21-32) 08/13/18 07:00 Anion Gap 7 MMOL/L (8-16) L 08/13/18 07:00 BUN 23 mg/dL (7-18) H 08/13/18 07:00 Creatinine 1.0 mg/dL (0.55-1.3) 08/13/18 07:00 Creat Clearance w eGFR > 60 (>60) 08/13/18 07:00 POC Glucometer 165 UNITS (80-120) 08/13/18 06:14 Random Glucose 188 mg/dL (74-106) H 08/13/18 07:00 Calcium 8.5 mg/dL (8.5-10.1) 08/13/18 07:00 Total Bilirubin 0.2 mg/dL (0.2-1) 08/13/18 07:00 AST 17 U/L (15-37) 08/13/18 07:00 ALT 25 U/L (13-61) 08/13/18 07:00 Alkaline Phosphatase 55 U/L (45-117) 08/13/18 07:00 Total Protein 6.5 g/dl (6.4-8.2) 08/13/18 07:00 Albumin 3.3 g/dl (3.4-5.0) L 08/13/18 07:00 Urine Color Yellow 08/12/18 21:12 Urine Appearance Turbid 08/12/18 21:12 Urine pH 5.0 (5.0-8.0) 08/12/18 21:12 Ur Specific [place] 1.029 (1.010-1.035) 08/12/18 21:12 Urine Protein 1+ (NEGATIVE) H 08/12/18 21:12 Urine Glucose (UA) Negative (NEGATIVE) 08/12/18 21:12 Urine Ketones 1+ (NEGATIVE) H 08/12/18 21:12 Urine Blood Negative (NEGATIVE) 08/12/18 21:12 Urine Nitrite Negative (NEGATIVE) 08/12/18 21:12 Urine Bilirubin Negative (<2.0 mg/dL) 08/12/18 21:12 Urine Urobilinogen Negative mg/dL (0.2-1.0) 08/12/18 21:12 Ur Leukocyte Esterase Negative (NEGATIVE) 08/12/18 21:12 Urine WBC (Auto) None /hpf (3-5) 08/12/18 21:12 Urine RBC (Auto) 1 /hpf (0-3) 08/12/18 21:12 Urine Mucus Many 08/12/18 21:12 lab noted Assessment: 08/13/18 11:06 withdrawal sx Plan: continue detox
[2018-08-13] MEDS: THIAMINE HCL 100 MG TABLET (FP) PO SCH (23:40)
[2018-08-13] MEDS: ATORVASTATIN CA 10 MG TABLET (FP) PO SCH (23:40)
[2018-08-14] MEDS: chlordiazePOXIDE HCL 25 MG CAPSULE PO SCH ×3 (06:26→18:19)
[2018-08-14] MEDS: PRENATAL VITAMINS W/ FOLIC ACID TABLET (FP) PO SCH (10:38)
[2018-08-14] MEDS: LORATADINE 10 MG TABLET PO SCH (10:38)
[2018-08-14] MEDS: GABAPENTIN 300 MG CAPSULE (FP) PO SCH (10:38)
[2018-08-14] MEDS: ASPIRIN 81 MG CHEWABLE TABLETS PO SCH (10:38)
[2018-08-14] MEDS: ENALAPRIL MALEATE 10 MG TABLET (FP) PO SCH (10:39)
[2018-08-14] MEDS: metFORMIN HCL 500 MG TABLET (FP) PO SCH (10:39)
[2018-08-14] MEDS: HYDROCHLOROTHIAZIDE 25 MG TABLET (FP) PO SCH (10:42)
--- NOTE | 2018-08-14 11:32 | PN ---
S CIWA - CIWA Score Nausea/Vomitin-Mild Nausea/No Vomiting Muscle Tremors: 3 Anxiety: 2 Agitation: 2 Paroxysmal Sweats: 1-Minimal Palms Moist Orientation: 1-Uncertain about Date Tacttile Disturbances: 1-Very Mild Itch/Numbness Auditory Disturbances: 0-None Visual Disturbances: 0-None Headache: 1-Very Mild CIWA-Ar Total Score: 12 BHS Progress Note (SOAP) Subjective: sweat tremor restlessness anxiety trouble sleep at night Objective: 08/14/18 11:36 Vital Signs Temperature 97.9 F 08/14/18 08:52 Pulse Rate 83 08/14/18 08:52 Respiratory Rate 18 08/14/18 08:52 Blood Pressure 142/88 08/14/18 08:52 O2 Sat by Pulse Oximetry (%) Laboratory Last Values WBC 5.6 K/mm3 (4.0-10.0) 08/13/18 07:00 RBC 4.41 M/mm3 (4.00-5.60) 08/13/18 07:00 Hgb 12.2 GM/dL (11.7-16.9) 08/13/18 07:00 Hct 38.0 % (35.4-49) 08/13/18 07:00 MCV 86.3 fl (80-96) 08/13/18 07:00 MCH 27.7 pg (25.7-33.7) 08/13/18 07:00 MCHC 32.2 g/dl (32.0-35.9) 08/13/18 07:00 RDW 14.7 % (11.9-15.9) 08/13/18 07:00 Plt Count 207 K/MM3 (134-434) D 08/13/18 07:00 MPV 7.6 fl (7.5-11.1) 08/13/18 07:00 Sodium 140 mmol/L (136-145) 08/13/18 07:00 Potassium 4.1 mmol/L (3.5-5.1) 08/13/18 07:00 Chloride 107 mmol/L (98-107) 08/13/18 07:00 Carbon Dioxide 26 mmol/L (21-32) 08/13/18 07:00 Anion Gap 7 MMOL/L (8-16) L 08/13/18 07:00 BUN 23 mg/dL (7-18) H 08/13/18 07:00 Creatinine 1.0 mg/dL (0.55-1.3) 08/13/18 07:00 Creat Clearance w eGFR > 60 (>60) 08/13/18 07:00 POC Glucometer 145 UNITS (80-120) 08/13/18 16:37 Random Glucose 188 mg/dL (74-106) H 08/13/18 07:00 Calcium 8.5 mg/dL (8.5-10.1) 08/13/18 07:00 Total Bilirubin 0.2 mg/dL (0.2-1) 08/13/18 07:00 AST 17 U/L (15-37) 08/13/18 07:00 ALT 25 U/L (13-61) 08/13/18 07:00 Alkaline Phosphatase 55 U/L (45-117) 08/13/18 07:00 Total Protein 6.5 g/dl (6.4-8.2) 08/13/18 07:00 Albumin 3.3 g/dl (3.4-5.0) L 08/13/18 07:00 Urine Color Yellow 08/12/18 21:12 Urine Appearance Turbid 08/12/18 21:12 Urine pH 5.0 (5.0-8.0) 08/12/18 21:12 Ur Specific [place] 1.029 (1.010-1.035) 08/12/18 21:12 Urine Protein 1+ (NEGATIVE) H 08/12/18 21:12 Urine Glucose (UA) Negative (NEGATIVE) 08/12/18 21:12 Urine Ketones 1+ (NEGATIVE) H 08/12/18 21:12 Urine Blood Negative (NEGATIVE) 08/12/18 21:12 Urine Nitrite Negative (NEGATIVE) 08/12/18 21:12 Urine Bilirubin Negative (<2.0 mg/dL) 08/12/18 21:12 Urine Urobilinogen Negative mg/dL (0.2-1.0) 08/12/18 21:12 Ur Leukocyte Esterase Negative (NEGATIVE) 08/12/18 21:12 Urine WBC (Auto) None /hpf (3-5) 08/12/18 21:12 Urine RBC (Auto) 1 /hpf (0-3) 08/12/18 21:12 Urine Mucus Many 08/12/18 21:12 RPR Titer Nonreactive (NONREACTIVE) 08/13/18 07:00 HIV 1&2 Antibody Screen Negative 08/13/18 07:00 HIV P24 Antigen Negative 08/13/18 07:00 lab noted Assessment: 08/14/18 11:37 withdrawal sx Plan: continue detox
[2018-08-14 13:43] VITALS: BP 109/62; PULSE 77; TEMP 98.1
--- NOTE | 2018-08-14 18:59 | DS ---
[facility] Detox Discharge Summary Admission Date: 08/12/18 Discharge Date: 08/14/18 - History Present History: Alcohol Dependence, Cannabis Dependence, Cocaine Dependence Additional Comments: No SI/HI. Patient left AMA. Patient to follow up with primary care provider and referrals. Patient to seek medical attention if worsening symptoms are present. - Physical Exam Results Vital Signs: Vital Signs Temperature 98.1 F 08/14/18 13:42 Pulse Rate 77 08/14/18 13:42 Respiratory Rate 18 08/14/18 13:42 Blood Pressure 109/62 08/14/18 13:42 O2 Sat by Pulse Oximetry (%) - Medication Discharge Medications: Ambulatory Orders Naproxen [Naprosyn -] 500 mg PO BID PRN #20 tablet 12/16/17 Mineral Oil/Petrolat,Wht/Water [Eucerin (Small Jar) -] 1 applic TP DAILY Aspirin [ASA -] 81 mg PO DAILY #30 tab.chew 02/06/18 Enalapril Maleate [Vasotec -] 10 mg PO DAILY #30 tablet 02/06/18 Gabapentin [Neurontin] 300 mg PO BID #60 capsule 02/06/18 Hydrochlorothiazide [Hctz -] 12.5 mg PO DAILY #30 tablet 02/06/18 Loratadine [Claritin] 10 mg PO DAILY #30 tablet 02/06/18 Simvastatin 20 mg PO HS #30 tablet 02/06/18 metFORMIN HCL [Glucophage -] 500 mg PO BID 08/12/18 - Diagnosis (1) Alcohol dependence with uncomplicated withdrawal Status: Acute (2) Cannabis dependence Status: Acute (3) Cocaine dependence Status: Acute Qualifiers: (4) Constipation Status: Acute (5) Diabetes type 2, controlled Status: Chronic Qualifiers: (6) Hypercholesterolemia Status: Chronic (7) Morbid obesity Status: Chronic (8) Nicotine dependence Status: Chronic Qualifiers: - AMA Did Patient Leave Against Medical Advice: Yes
[2018-08-14] MEDS ORDERED: chlordiazePOXIDE 5 MG CAPSULE PO SCH (23:00)
[2018-08-15] MEDS ORDERED: chlordiazePOXIDE HCL 10 MG CAPSULE PO SCH (23:00)
== END 2018-08-14 18:17 | disposition left against medical advice (07) | DRG 770 ==
LOC: YASAS 12:38 → Y6N 15:40
PROC: HZ2ZZZZ Detoxification Services for Substance Abuse Treatment (ICD-10-PCS; principal; 2018-08-12)
DX: F10.230 Alcohol dependence with withdrawal, uncomplicated (principal); F14.20 Cocaine dependence, uncomplicated; F12.20 Cannabis dependence, uncomplicated; F17.210 Nicotine dependence, cigarettes, uncomplicated; E78.5 Hyperlipidemia, unspecified; E11.9 Type 2 diabetes mellitus without complications; K59.00 Constipation, unspecified; M54.5 Low back pain; G62.9 Polyneuropathy, unspecified; E66.01 Morbid (severe) obesity due to excess calories; Z68.37 Body mass index [BMI] 37.0-37.9, adult; Z79.84 Long term (current) use of oral hypoglycemic drugs
CPT/HCPCS: 36415; 80053; 81003; 81015; 82962; 85027; 86593; 87389; 93005; 93010

== ENCOUNTER 2019-04-28 10:08 | Inpatient (IN) | payer OTHER ==
[~2019-04-28 10:08] MED LIST: chlordiazePOXIDE HCL 25 MG CAPSULE PO SCH
[2019-04-28 10:30] VITALS: BMI 36.5
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
[2019-04-28] MEDS ORDERED: MENTHOL/PHENOL 1 EACH UD MM PRN (16:30)
[2019-04-28] MEDS ORDERED: MELATONIN 5 MG TABLETS PO PRN (16:30)
[2019-04-28] MEDS ORDERED: METHOCARBAMOL 500 MG TABLET PO PRN (16:30)
[2019-04-28] MEDS ORDERED: hydrOXYzine PAMOATE 25 MG CAPSULE (FP) PO PRN (16:30)
[2019-04-28] MEDS ORDERED: MAGNESIUM CITRATE 300 ML BOTTLE PO PRN (16:30)
[2019-04-28] MEDS ORDERED: IBUPROFEN 400 MG TABLET (FP) PO PRN (16:30)
[2019-04-28] MEDS ORDERED: chlordiazePOXIDE HCL 10 MG CAPSULE PO PRN (16:30)
[2019-04-28] MEDS ORDERED: ACETAMINOPHEN 325 MG TABLET (FP) PO PRN ×2 (16:30)
[2019-04-28] MEDS ORDERED: MAGNESIUM HYDROX 2400MG/30ML ORAL SUSPENSION 30 ML CUP PO PRN (16:30)
[2019-04-28] MEDS ORDERED: MAG HYDROX/AL HYDROX/SIMETH 30 ML UNIT-DOSE CUP PO PRN (16:30)
[2019-04-28] MEDS ORDERED: BISMUTH SUBSALICYLATE 524 MG/30 ML UD PO PRN (16:30)
[2019-04-28] MEDS ORDERED: NICOTINE POLACRILEX 2 MG GUM BUC PRN (16:30)
[2019-04-28] MEDS ORDERED: chlordiazePOXIDE HCL 25 MG CAPSULE PO PRN (18:03)
[2019-04-28] MEDS ORDERED: THIAMINE HCL 100 MG TABLET (FP) PO SCH (22:00)
[2019-04-28] MEDS ORDERED: ATORVASTATIN CA 10 MG TABLET (FP) PO SCH (22:00)
[2019-04-28] MEDS: chlordiazePOXIDE HCL 25 MG CAPSULE PO SCH (22:58)
[2019-04-28] MEDS: ENALAPRIL MALEATE 10 MG TABLET (FP) PO SCH (22:58)
[2019-04-29] MEDS ORDERED: chlordiazePOXIDE 5 MG CAPSULE PO SCH (05:00)
[2019-04-29] MEDS: chlordiazePOXIDE HCL 25 MG CAPSULE PO SCH ×2 (06:04→10:05)
[2019-04-29] MEDS ORDERED: ASPIRIN 81 MG CHEWABLE TABLETS PO SCH (10:00)
[2019-04-29] MEDS ORDERED: NICOTINE 21 MG/24 HOURS TOPICAL PATCH TD SCH (10:00)
[2019-04-29] MEDS ORDERED: PRENATAL VITAMINS W/ FOLIC ACID TABLET (FP) PO SCH (10:00)
[2019-04-29] MEDS: ENALAPRIL MALEATE 10 MG TABLET (FP) PO SCH (10:05)
[2019-04-29 10:25] LABS: HEMATOCRIT 42.1 % (35.4-49); HEMOGLOBIN 13.7 GM/dL (11.7-16.9); MCH 27.8 pg (25.7-33.7); MCHC 32.5 g/dl (32.0-35.9); MEAN CELL VOLUME 85.5 fl (80-96); MEAN PLT VOLUME 7.2 fl (7.5-11.1); PLATELET COUNT 307 K/MM3 (134-434); RBC 4.92 M/mm3 (4.00-5.60); WHITE BLOOD COUNT 7.4 K/mm3 (4.0-10.0)
[2019-04-29 10:56] LABS: BILIRUBIN,TOTAL 0.4 mg/dL (0.2-1); BLOOD UREA NITROGEN 13.7 mg/dL (7-18); CALCIUM 9.1 mg/dL (8.5-10.1); CREATININE 1.1 mg/dL (0.55-1.3); POTASSIUM 4.6 mmol/L (3.5-5.1); TOT PROT 7.8 g/dl (6.4-8.2)
[2019-04-29 13:06] VITALS: BP 111/71; PULSE 95; TEMP 97.7
--- NOTE | 2019-04-29 13:11 | PN ---
S Progress Note Note: pt refused to complete detox; pt c/o withdrawals s/s and aggressive symptomatic management attempted however, pt in spite of extensive motivational counseling regarding the risk of relapse, seizures, DT's or loss pt chose to sign out AMA.
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
[2019-04-29] MEDS ORDERED: chlordiazePOXIDE HCL 25 MG CAPSULE PO SCH (23:00)
[2019-04-30] MEDS ORDERED: chlordiazePOXIDE HCL 10 MG CAPSULE PO PRN ×2 (05:00→23:00)
[2019-04-30] MEDS ORDERED: chlordiazePOXIDE HCL 10 MG CAPSULE PO SCH ×2 (05:00→23:00)
--- NOTE | 2019-04-30 13:48 | EKG ---
Test Reason : Blood Pressure : / mmHG Vent. Rate : 091 BPM Atrial Rate : 091 BPM P-R Int : 162 ms QRS Dur : 076 ms QT Int : 370 ms P-R-T Axes : 066 -29 025 degrees QTc Int : 455 ms NORMAL SINUS RHYTHM SEPTAL INFARCT , AGE UNDETERMINED ABNORMAL ECG WHEN COMPARED WITH ECG OF 12-AUG-2018 18:42, SEPTAL INFARCT IS NOW PRESENT Confirmed by MD HUMBERTO, MICAELA ([id number]) on 04/30/2019 1:47:36 PM Referred By: MURRAY RECIO Confirmed By:MICAELA PAUL MD
--- NOTE | 2019-04-30 13:48 | EKG ---
Test Reason : Blood Pressure : / mmHG Vent. Rate : 077 BPM Atrial Rate : 077 BPM P-R Int : 178 ms QRS Dur : 078 ms QT Int : 380 ms P-R-T Axes : 065 -21 014 degrees QTc Int : 430 ms SINUS RHYTHM WITH OCCASIONAL PREMATURE VENTRICULAR COMPLEXES CANNOT RULE OUT ANTEROSEPTAL INFARCT , AGE UNDETERMINED ABNORMAL ECG WHEN COMPARED WITH ECG OF 12-AUG-2018 18:42, PREMATURE VENTRICULAR COMPLEXES ARE NOW PRESENT MINIMAL CRITERIA FOR ANTEROSEPTAL INFARCT ARE NOW PRESENT Confirmed by MD HUMBERTO, MICAELA ([id number]) on 04/30/2019 1:48:01 PM Referred By: Confirmed By:MICAELA PAUL MD
[2019-05-01] MEDS ORDERED: chlordiazePOXIDE HCL 10 MG CAPSULE PO SCH (23:00)
== END 2019-04-29 13:51 | disposition left against medical advice (07) | DRG 770 ==
LOC: YASAS 10:08 → Y6N 17:06
PROVIDERS: ADMIT Surgery; ATTEND Surgery
PROC: HZ2ZZZZ Detoxification Services for Substance Abuse Treatment (ICD-10-PCS; principal; 2019-04-28)
DX: F10.230 Alcohol dependence with withdrawal, uncomplicated (principal); F14.20 Cocaine dependence, uncomplicated; F12.20 Cannabis dependence, uncomplicated; F17.210 Nicotine dependence, cigarettes, uncomplicated; I10 Essential (primary) hypertension; E11.9 Type 2 diabetes mellitus without complications; E78.00 Pure hypercholesterolemia, unspecified; H57.89 Other specified disorders of eye and adnexa; K59.00 Constipation, unspecified; L98.8 Other specified disorders of the skin and subcutaneous tissue; G62.9 Polyneuropathy, unspecified; M54.5 Low back pain; G89.29 Other chronic pain; R00.0 Tachycardia, unspecified; E66.01 Morbid (severe) obesity due to excess calories; Z68.36 Body mass index [BMI] 36.0-36.9, adult; Z79.84 Long term (current) use of oral hypoglycemic drugs
CPT/HCPCS: 36415; 80053; 82962; 85027; 86593; 93005; 93010

== ENCOUNTER 2022-05-26 07:57 | Inpatient (IN) | payer OTHER ==
[2022-05-26 09:51] VITALS: BMI 29.6
[2022-05-26] MEDS ORDERED: MAG HYDROX/AL HYDROX/SIMETH 30 ML UNIT-DOSE CUP PO PRN (11:51)
[2022-05-26] MEDS ORDERED: METHOCARBAMOL 500 MG TABLET PO PRN (11:51)
[2022-05-26] MEDS ORDERED: IBUPROFEN 600 MG TABLET (FP) PO PRN (11:51)
[2022-05-26] MEDS ORDERED: LOPERAMIDE HCL 2 MG CAPSULE PO PRN (11:51)
[2022-05-26] MEDS ORDERED: MAGNESIUM HYDROX 2400MG/30ML ORAL SUSPENSION 30 ML CUP PO PRN (11:51)
[2022-05-26] MEDS ORDERED: MAGNESIUM CITRATE 300 ML BOTTLE PO PRN (11:51)
[2022-05-26] MEDS ORDERED: NICOTINE POLACRILEX 2 MG GUM BUC PRN (11:51)
[2022-05-26] MEDS ORDERED: IBUPROFEN 400 MG TABLET (FP) PO PRN (11:51)
[2022-05-26] MEDS ORDERED: ACETAMINOPHEN 325 MG TABLET (FP) PO PRN ×2 (11:51)
[2022-05-26] MEDS ORDERED: ONDANSETRON *ODT* 4 MG TABLET SL PRN (11:51)
[2022-05-26] MEDS ORDERED: chlordiazePOXIDE HCL 25 MG CAPSULE PO PRN (11:51)
[2022-05-26] MEDS ORDERED: NICOTINE 10 MG CARTRIDGE (INHALER) IH PRN (11:51)
[2022-05-26] MEDS ORDERED: BENZOCAINE/MENTHOL (CHLORASEPTIC ) LOZENGE MM PRN (11:51)
[2022-05-26] MEDS ORDERED: DICYCLOMINE HCL 10 MG CAPSULE PO PRN (11:51)
[2022-05-26] MEDS ORDERED: BISMUTH SUBSALICYLATE 262 MG/15 ML BTL PO PRN (11:51)
[2022-05-26] MEDS ORDERED: LORATADINE 10 MG TABLET PO PRN (11:54)
[2022-05-26] MEDS ORDERED: CALCIUM CARBONATE 200 MG PO PRN (11:54)
[2022-05-26] MEDS ORDERED: MELOXICAM 7.5 MG PO SCH (12:00)
[2022-05-26] MEDS ORDERED: ASPIRIN 81 MG CHEWABLE TABLETS ONE (13:16)
[2022-05-26] MEDS: ASPIRIN 81 MG CHEWABLE TABLETS PO SCH (13:18)
[2022-05-26] MEDS ORDERED: PATIENT'S OWN MEDICATION (NON-FORMULARY) (Insulin Lispro [Humalog] 100 UNIT/ML Vial) SQ SCH (14:00)
[2022-05-26 15:36] VITALS: RESP 18
[2022-05-26] MEDS: ENALAPRIL MALEATE 10 MG TABLET PO SCH ×2 (15:46→22:45)
[2022-05-26] MEDS: hydrOXYzine PAMOATE 25 MG CAPSULE (FP) PO SCH ×3 (15:47→22:45)
[2022-05-26] MEDS: PRENATAL VITAMINS W/ FOLIC ACID TABLET (FP) PO SCH (15:48)
[2022-05-26] MEDS ORDERED: INSULIN SLIDING SCALE (NOVOLOG) 1 VIAL SQ SCH (16:30)
[2022-05-26] MEDS: chlordiazePOXIDE HCL 25 MG CAPSULE PO SCH ×2 (18:15→22:45)
[2022-05-26 18:43] LABS: HEMATOCRIT 36.2 % (35.4-49); HEMOGLOBIN 12.1 GM/dL (11.7-16.9); MCH 29.9 pg (25.7-33.7); MCHC 33.3 g/dl (32.0-35.9); MEAN CELL VOLUME 89.6 fl (80-96); MEAN PLT VOLUME 7.5 fl (7.5-11.1); PLATELET COUNT 221 10^3/uL (134-434); RBC 4.04 M/mm3 (4.00-5.60); RDW 13.6 % (11.9-15.9); WHITE BLOOD COUNT 6.7 K/mm3 (4.0-10.0)
[2022-05-26 18:50] LABS: CALCIUM 8.8 mg/dL (8.5-10.1)
[2022-05-26 18:51] LABS: ALBUMIN 3.1 g/dl (3.4-5.0); BLOOD UREA NITROGEN 27.9 mg/dL (7-18)
[2022-05-26 18:54] LABS: CREATININE 1.2 mg/dL (0.55-1.3)
[2022-05-26 18:57] LABS: BILIRUBIN,TOTAL 0.3 mg/dL (0.2-1)
[2022-05-26] MEDS: INSULIN SLIDING SCALE (NOVOLOG) 1 VIAL SQ SCH ×2 (19:42→22:55)
[2022-05-26] MEDS ORDERED: MELATONIN 5 MG TABLETS PO SCH (22:00)
[2022-05-26] MEDS ORDERED: THIAMINE HCL 100 MG TABLET (FP) PO SCH (22:00)
[2022-05-26] MEDS ORDERED: ATORVASTATIN CA 10 MG TABLET (FP) PO SCH (22:00)
[2022-05-27] MEDS: hydrOXYzine PAMOATE 25 MG CAPSULE (FP) PO SCH ×4 (06:34→17:38)
[2022-05-27] MEDS: chlordiazePOXIDE HCL 25 MG CAPSULE PO SCH ×3 (06:34→17:38)
[2022-05-27] MEDS: INSULIN SLIDING SCALE (NOVOLOG) 1 VIAL SQ SCH (08:12)
[2022-05-27] MEDS: PRENATAL VITAMINS W/ FOLIC ACID TABLET (FP) PO SCH (11:08)
[2022-05-27] MEDS: ASPIRIN 81 MG CHEWABLE TABLETS PO SCH (11:09)
[2022-05-27] MEDS: ENALAPRIL MALEATE 10 MG TABLET PO SCH (11:09)
[2022-05-27] MEDS ORDERED: INSULIN SLIDING SCALE (NOVOLOG) 1 VIAL SQ SCH (16:30)
[2022-05-27 18:17] VITALS: BP 132/78; PULSE 78; TEMP 97.5
[2022-05-28] MEDS ORDERED: chlordiazePOXIDE HCL 25 MG CAPSULE PO SCH (05:00)
[2022-05-29] MEDS ORDERED: chlordiazePOXIDE HCL 10 MG CAPSULE PO PRN
[2022-05-29] MEDS ORDERED: chlordiazePOXIDE HCL 10 MG CAPSULE PO SCH (05:00)
[2022-05-30] MEDS ORDERED: chlordiazePOXIDE HCL 10 MG CAPSULE PO SCH (05:00)
[2022-05-31] MEDS ORDERED: chlordiazePOXIDE HCL 10 MG CAPSULE PO ONE (05:00)
== END 2022-05-27 18:56 | disposition left against medical advice (07) | DRG 770 ==
LOC: SUATTDRO 07:57 → YASAS 07:57 → Y3N 14:59
PROVIDERS: ADMIT Allergy & Immunology; ATTEND Surgery
PROC: HZ2ZZZZ Detoxification Services for Substance Abuse Treatment (ICD-10-PCS; principal; 2022-05-26)
DX: F10.230 Alcohol dependence with withdrawal, uncomplicated (principal); F14.20 Cocaine dependence, uncomplicated; F12.20 Cannabis dependence, uncomplicated; E78.5 Hyperlipidemia, unspecified; E11.9 Type 2 diabetes mellitus without complications; M54.59 Other low back pain; G89.29 Other chronic pain; Z79.84 Long term (current) use of oral hypoglycemic drugs
CPT/HCPCS: 36415; 80053; 82962; 85027; 86780; 87811; C9803-CS; U0003; U0005